=== PATIENT | female | born 1990 | race Caucasian/White ===

== ENCOUNTER 2016-12-13 20:35 | Emergency (ER) | payer OTHER ==
--- NOTE | 2016-12-13 21:21 | ED ---
General Adult HPI - General Chief complaint: Vaginal Bleeding Stated complaint: 6 wks preg spotting Time Seen by Provider: 12/13/16 21:03 Source: patient Mode of arrival: ambulatory - History of Present Illness Initial comments: This patient is 26-year-old woman who comes to the hospital be evaluated for vaginal bleeding. She states that she is about 6 weeks' judging from her last period. She has had approximately one week of some intermittent suprapubic cramping. Tonight about 2 hours ago she started to have what she is describing as some vaginal spotting. It is less than a usual period. She is concerned because she has had previous miscarriages. Patient denies fever or chills. She denies significant abdominal pain. She denies any chest pain, dyspnea, cough. She has not had change in urination or bowel movements. No leg swelling or pain. Onset/Timin -: week(s) Location: abdomen Radiation: non-radiation Quality: other Consistency: intermittent (Cramping) Improves with: none Worsens with: none Associated Symptoms: other Treatments Prior to Arrival: none - Related Data Home Medications Medication Instructions Recorded Confirmed Escitalopram [Lexapro] 10 mg PO HS 03/27/16 12/13/16 Previous Rx's Medication Instructions Recorded Amoxicillin 500 mg PO Q8H #21 capsule 12/14/16 Allergies Allergy/AdvReac Type Severity Reaction Status Date / Time alprazolam [From Xanax] Allergy Rash/Hives Verified 12/13/16 21:21 Egg Derived Allergy Rash/Hives Verified 12/13/16 21:21 Review of Systems ROS Statement: Those systems with pertinent positive or pertinent negative responses have been documented in the HPI. ROS Other: All systems not noted in ROS Statement are negative. Constitutional: Denies: fever, chills Respiratory: Denies: cough, dyspnea Cardiovascular: Denies: chest pain, palpitations Gastrointestinal: Reports: as per HPI, abdominal pain. Denies: nausea, vomiting , diarrhea Genitourinary: Reports: as per HPI, other (Bleeding). Denies: urgency, dysuria , frequency, hematuria, discharge Musculoskeletal: Denies: back pain Skin: Denies: rash Hematological/Lymphatic: Denies: easy bleeding Past Medical History Past Medical History: No Reported History History of Any Multi-Drug Resistant Organisms: None Reported Past Surgical History: No Surgical Hx Reported Past Psychological History: Anxiety Smoking Status: Never smoker Past Alcohol Use History: None Reported Past Drug Use History: None Reported General Exam General appearance: alert, in no apparent distress Head exam: Present: atraumatic, normocephalic Eye exam: Present: normal appearance. Absent: scleral icterus, conjunctival injection ENT exam: Present: normal oropharynx, mucous membranes moist Respiratory exam: Present: normal lung sounds bilaterally. Absent: respiratory distress, wheezes, rales, rhonchi, stridor Cardiovascular Exam: Present: regular rate, normal rhythm, normal heart sounds. Absent: systolic murmur, diastolic murmur, rubs, gallop GI/Abdominal exam: Present: soft. Absent: distended, tenderness, guarding, rebound, mass External exam: Present: normal external exam. Absent: erythema, swelling, lesions Speculum exam: Present: normal speculum exam, vaginal bleeding. Absent: erythema, cervical discharge, foreign body, tissue, laceration By manual exam: Absent: cervical motion tenderness (There is a trace of blood present the cervix is closed and nontender) Extremities exam: Present: normal inspection, normal capillary refill. Absent: pedal edema, calf tenderness Back exam: Absent: CVA tenderness (R), CVA tenderness (L) Neurological exam: Present: alert Skin exam: Present: warm, dry, intact, normal color. Absent: rash Course Vital Signs 12/13/16 12/13/16 20:49 23:13 Temperature 99.0 F 97.7 F Pulse Rate 83 80 Respiratory 18 20 Rate Blood Pressure 166/96 144/90 O2 Sat by Pulse 99 97 Oximetry Medical Decision Making - Lab Data Result diagrams: 12/13/16 21:40 Lab Results 12/13/16 12/13/16 12/13/16 Range/Units 00:30 21:40 21:40 WBC 8.1 (3.8-10.6) k/uL RBC 5.28 (3.80-5.40) m/uL Hgb 12.9 (11.4-16.0) gm/dL Hct 40.0 (34.0-46.0) % MCV 75.8 L (80.0-100.0) fL MCH 24.4 L (25.0-35.0) pg MCHC 32.2 (31.0-37.0) g/dL RDW 15.5 (11.5-15.5) % Plt Count 324 (150-450) k/uL Neutrophils % 58 % Lymphocytes % 31 % Monocytes % 6 % Eosinophils % 3 % Basophils % 1 % Neutrophils # 4.7 (1.3-7.7) k/uL Lymphocytes # 2.5 (1.0-4.8) k/uL Monocytes # 0.5 (0-1.0) k/uL Eosinophils # 0.2 (0-0.7) k/uL Basophils # 0.0 (0-0.2) k/uL Microcytosis Slight HCG, Quant mIU/mL Urine Color Light Yellow Urine Appearance Cloudy H (Clear) Urine pH 6.0 (5.0-8.0) Ur Specific [place] 1.007 (1.001-1.035) Urine Protein Negative (Negative) Urine Glucose (UA) Negative (Negative) Urine Ketones Negative (Negative) Urine Blood Small H (Negative) Urine Nitrite Negative (Negative) Urine Bilirubin Negative (Negative) Urine Urobilinogen <2.0 (<2.0) mg/dL Ur Leukocyte Esterase Large H (Negative) Urine RBC 4 (0-5) /hpf Urine WBC 17 H (0-5) /hpf Ur Squamous Epith Cells 11 H (0-4) /hpf Amorphous Sediment Rare H (None) /hpf Urine Bacteria Rare H (None) /hpf Urine Mucus Rare H (None) /hpf Blood Type A Negative Blood Type Recheck No Antibody Screen NEGATIVE 12/13/16 Range/Units 21:40 WBC (3.8-10.6) k/uL RBC (3.80-5.40) m/uL Hgb (11.4-16.0) gm/dL Hct (34.0-46.0) % MCV (80.0-100.0) fL MCH (25.0-35.0) pg MCHC (31.0-37.0) g/dL RDW (11.5-15.5) % Plt Count (150-450) k/uL Neutrophils % % Lymphocytes % % Monocytes % % Eosinophils % % Basophils % % Neutrophils # (1.3-7.7) k/uL Lymphocytes # (1.0-4.8) k/uL Monocytes # (0-1.0) k/uL Eosinophils # (0-0.7) k/uL Basophils # (0-0.2) k/uL Microcytosis HCG, Quant 847.6 mIU/mL Urine Color Urine Appearance (Clear) Urine pH (5.0-8.0) Ur Specific [place] (1.001-1.035) Urine Protein (Negative) Urine Glucose (UA) (Negative) Urine Ketones (Negative) Urine Blood (Negative) Urine Nitrite (Negative) Urine Bilirubin (Negative) Urine Urobilinogen (<2.0) mg/dL Ur Leukocyte Esterase (Negative) Urine RBC (0-5) /hpf Urine WBC (0-5) /hpf Ur Squamous Epith Cells (0-4) /hpf Amorphous Sediment (None) /hpf Urine Bacteria (None) /hpf Urine Mucus (None) /hpf Blood Type Blood Type Recheck Antibody Screen Disposition Clinical Impression: Threatened Disposition: HOME SELF-CARE Condition: Good Instructions: Threatened Miscarriage (ED), Ectopic (ED) Additional Instructions: As we discussed, it is too early to tell where her is located. 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 Return here immediately if there is any worsening or if there is problem with follow-up. Prescriptions: Amoxicillin 500 mg PO Q8H #21 capsule Referrals: Chris Cade MD [Primary Care Provider] - 1-2 days
[2016-12-13 21:49] LABS: Basophils % (A) 1 %; CH 24.2; CHCM 32.1; Eosinophils # (A) 0.2 k/uL (0-0.7); Eosinophils % (A) 3 %; HGB 12.9 gm/dL (11.4-16.0); Luc # (Auto) 0.17; Luc % (Auto) 2; Lymphocytes # (A) 2.5 k/uL (1.0-4.8); Lymphocytes % (A) 31 %; MCH 24.4 pg (25.0-35.0); MCHC 32.2 g/dL (31.0-37.0); MCV 75.8 fL (80.0-100.0); Microcytosis Slight; Monocytes # (A) 0.5 k/uL (0-1.0); Monocytes % (A) 6 %; Neutrophils # (A) 4.7 k/uL (1.3-7.7); Neutrophils % (A) 58 %; RBC 5.28 m/uL (3.80-5.40); RDW 15.5 % (11.5-15.5); WBC 8.1 k/uL (3.8-10.6); WBC (Perox) 7.87
[2016-12-13] MEDS ORDERED: Rhogam IMMUNE GLOBULIN 1,500 UNIT/1 ML IM ONE (22:23)
--- NOTE | 2016-12-14 00:34 | US ---
Exam: US OB/ENDOVAG History: "Pain". Comparison: None provided. Technique: Grayscale and color images submitted. Findings: The uterus measures 8.8 cm x 5.0 cm x 5.6 cm. The endometrial stripe is thickened to approximately 1.8 cm. No intrauterine identified. Endometrial thickening could be due to very early . Hyperplasia may have a similar appearance. The right ovary measures 3.6 cm x 3.4 cm x 2.9 cm. The left ovary measures 3.3 cm x 2.7 cm x 2.3 cm. No suspicious adnexal masses seen. If there is high clinical concern for occult ectopic , correlate with beta hCG. No free fluid identified. Impression: 1. Thickened endometrium. Nonspecific. Could be due to very early . Continued follow-up recommended. 2. No suspicious adnexal mass identified. There is high clinical concern for an occult ectopic , continued close follow-up is advised.
[2016-12-14 00:45] LABS: Amorphous Sediment,Urine Rare /hpf; Appearance,Urine Cloudy (Clear); Bacteria,Urine Rare /hpf; Bilirubin,Urine Negative (Negative); Glucose,Urine (UA) Negative (Negative); Ketones,Urine Negative (Negative); Leukocyte Esterase,Urine Large (Negative); Mucus,Urine Rare /hpf; Nitrite,Urine Negative (Negative); Particle Count 17530; Protein,Urine Negative (Negative); RBC,Urine 4 /hpf (0-5); Specific Gravity,Urine 1.007 (1.001-1.035); Squamous Epithelial Cell,Urine 11 /hpf (0-4); UA Billing (MACRO vs. MICRO) MICRO; Urobilinogen,Urine <2.0 mg/dL (<2.0); WBC,Urine 17 /hpf (0-5)
[2016-12-14 01:09] VITALS: BP 137/91; PULSE 85; RESP 18; TEMP 97.9
== END 2016-12-14 01:16 | disposition home or self-care (01) ==
LOC: EC 20:35
DX: O20.0 Threatened abortion (principal); O99.321 Drug use complicating pregnancy, first trimester; F41.9 Anxiety disorder, unspecified; Z79.899 Other long term (current) drug therapy; Z91.012 Allergy to eggs; Z88.8 Allergy status to other drugs, medicaments and biological substances; Z3A.01 Less than 8 weeks gestation of pregnancy
CPT/HCPCS: 96372 ×2; 99284 ×2; 36415; 86900; 86901; 85025; 86850; 81001; 84702; 76801; 76817; J2791

== ENCOUNTER → 2016-12-16 | Outpatient (CLI) | payer OTHER | END | disposition home or self-care (01) | LOC: LABWHC1 10:41 | PROVIDERS: ATTEND Obstetrics & Gynecology | DX: Z34.80 Encounter for supervision of other normal pregnancy, unspecified trimester (principal) | CPT/HCPCS: 36415; 84702 ==

== ENCOUNTER → 2017-01-10 | Outpatient (CLI) | payer OTHER ==
--- NOTE | 2017-01-10 11:53 | US ---
EXAMINATION TYPE: US OB <=14 wks transvag DATE OF EXAM: 01/10/2017 COMPARISON: Previous study dated 12/13/2016. CLINICAL HISTORY: 046.91 Bleeding First Trimester. EXAM PERFORMED: Transvaginal (TV) and Transabdominal (TA) EXAM MEASUREMENTS: GESTATIONAL AGE / DATING Physician Established: not yet established Dates by LMP: unknown Dates by First Scan: 1st scan today Dates by Current Scan for: (8 weeks/2 days) EDC: 08/20/16 MATERNAL ANATOMY Uterus: 11.3 x 6.3 x 8.6 Right Ovary: not visualized due to overlying bowel, large body habitus Left Ovary: not visualized due to overlying bowel, large body habitus Post CDS / Adnexa: wnl Presence of free fluid: no Presence of subchorionic bleed: 1.1 x 0.6 x 0.8cm GESTATION / SURVEY CRL: 1.8 (8 weeks/2 days) Yolk Sac (normal less than 6mm): 3mm Heart Rate: 175 bpm Rhythm: Normal IUP: Viable IUP IMPRESSION: VIABLE INTRAUTERINE GESTATION WITH A GESTATIONAL AGE OF 8 WEEKS 2 DAYS +/- 5 DAYS. ESTIMATED DATE OF CONFINEMENT BASED ON THIS EXAMINATION IS 08/20/2017.
== END ==
LOC: RADUSWWP 10:55
PROVIDERS: ATTEND Obstetrics & Gynecology
DX: O46.91 Antepartum hemorrhage, unspecified, first trimester (principal); Z3A.08 8 weeks gestation of pregnancy
CPT/HCPCS: 76801; 76817; 84702; 86850; 86900; 86901

== ENCOUNTER → 2017-02-02 | Outpatient (CLI) | payer OTHER ==
[2017-02-02 09:33] LABS: CH 25.2; CHCM 32.1; HCT 40.8 % (34.0-46.0); HDW 2.53; HGB 13.3 gm/dL (11.4-16.0); MCH 25.6 pg (25.0-35.0); MCHC 32.5 g/dL (31.0-37.0); MCV 78.7 fL (80.0-100.0); RBC 5.18 m/uL (3.80-5.40); WBC 9.6 k/uL (3.8-10.6)
[2017-02-02 10:09] LABS: Glucose 89 mg/dL (74-99); Non-African American GFR(MDRD) >60 (>60 ml/min/1.73 sqM)
[2017-02-02 16:37] LABS: Treponemal Ab Non-Reactive (Non-Reactive)
== END | disposition home or self-care (01) ==
LOC: LABWHC1 08:47
PROVIDERS: ATTEND Obstetrics & Gynecology
DX: O26.811 Pregnancy related exhaustion and fatigue, first trimester (principal); Z3A.00 Weeks of gestation of pregnancy not specified
CPT/HCPCS: 36415; 82565; 82947; 85027; 86762; 86780; 86850; 86870; 86880; 86900; 86901; 87340; 87390

== ENCOUNTER → 2017-05-24 | Outpatient (CLI) | payer OTHER ==
[2017-05-24 13:45] LABS: HCT 37.5 % (34.0-46.0); HGB 11.9 gm/dL (11.4-16.0); MCH 25.4 pg (25.0-35.0); MCHC 31.7 g/dL (31.0-37.0); MCV 80.2 fL (80.0-100.0); Mean Platelet Volume 6.6; Platelet Count 304 k/uL (150-450); RBC 4.68 m/uL (3.80-5.40); RDW 14.5 % (11.5-15.5); WBC 11.4 k/uL (3.8-10.6)
== END | disposition home or self-care (01) ==
LOC: LABWHC1 12:16
PROVIDERS: ATTEND Obstetrics & Gynecology
DX: Z34.82 Encounter for supervision of other normal pregnancy, second trimester (principal); Z3A.00 Weeks of gestation of pregnancy not specified
CPT/HCPCS: 36415; 82950; 85027; 86850; 86900; 86901

== ENCOUNTER 2017-05-29 15:10 | Outpatient (CLI) | payer OTHER ==
[2017-05-29 16:46] VITALS: BP 133/85; PULSE 91; RESP 16; TEMP 97.5
--- NOTE | 2017-06-21 08:56 | P.MSEPDOC ---
Presenting Problems - Arrival Data Date of Arrival on Unit: 05/29/17 Time of Arrival on Unit: 15:10 Mode of Transport: Ambulatory - Complaint OB-Reason for Admission/Chief Complaint: Decreased Movement, Pain Medical History - Information : 5 Para: 1 Term: 1 : 0 Abortions: Spontaneous or Elective: 3 Number of Living Children: 1 - Gestational Age Gestational Age by CHRISTOS (wks/days): 28 Weeks and 5 Days - History Complications: Chronic HTN Review of Systems - Review of Systems Constitutional: No problems Breast: No problems ENT: No problems Cardiovascular: No problems Respiratory: No problems Gastrointestinal: No problems Genitourinary: No problems Musculoskeletal: No problems Neurological: No problems Skin: No problems Vital Signs - Temperature Temperature: 97.5 F Temperature Source: Tympanic - Pulse Right Brachial Pulse Rate: 91 Pulse Assessment Method: Automatic Cuff - Respirations Respiratory Rate: 16 Oxygen Delivery Method: Room Air - Blood Pressure Right Arm Blood Pressure: 133/85 Blood Pressure Mean: 101 Blood Pressure Source: Automatic Cuff Medical Screen Scoring (Pre) - Cervical Exam Dilation: 0 cm = 0 Membranes: Intact - Uterine Contractions Frequency: N/A Duration: N/A Intensity: N/A - Maternal Vital Signs Maternal Temperature: N/A Maternal Blood Pressure: N/A Signs of Preeclampsia: N/A Maternal Respirations: N/A - Pain Assessment Pain Location and Character: Abdomen Pain Scale Used: Numeric (1 - 10) Pain Intensity: 4 Pain Management Goal: 2 Pain Description: *Acute Pain Radiation Location: na Pain Frequency: Occasional Pain Duration: 7 Pain Duration Units: Days Pain Behavior: Vocalization Pain Aggravating Factors: Activity Non-Pharmacological Interventions: Environmental Control, Inactivity, Position/ Reposition - Maternal Trauma Maternal Trauma: N/A - Assessment Baseline FHR: 150 Heart Rate - NICHD Category: Category I (Normal) = 0 NST: Reactive Position: N/A Station: N/A - Total Score Total Score (Pre): 0 - Level of Risk Level of Risk: Low (0-5) Physician Notification (Pre) - Physician Notified Physician Notified Date: 05/29/17 Physician Notified Time: 16:25 Physician/Practitioner Notifed:: Dr. Delgado Spoke With: Dr. Delgado New Order Received: Yes - Notification Comment Comment: d/c home Disposition - Disposition OB Disposition: Discharge to home Discharge Date: 05/29/17 Discharge Time: 16:30 I agree with the RN Medical Screening Exam: Yes Risk & Benefit of care provided described in d/c instruction: Yes Diagnosis: DECREASED MOVEMENTS, THIRD TRIMESTER, FETUS 1
== END 2017-05-29 16:47 | disposition home or self-care (01) ==
LOC: FBPOP 15:10
PROVIDERS: ATTEND Obstetrics & Gynecology
DX: O36.8131 Decreased fetal movements, third trimester, fetus 1 (principal); Z3A.28 28 weeks gestation of pregnancy
CPT/HCPCS: 59025; 84112; G0463; 99213

== ENCOUNTER 2017-06-02 07:35 | Outpatient (CLI) | payer OTHER ==
[2017-06-02 08:43] VITALS: BP 127/82; PULSE 78; RESP 18; TEMP 97.2
--- NOTE | 2017-06-07 23:26 | P.MSEPDOC ---
Presenting Problems - Arrival Data Date of Arrival on Unit: 06/02/17 Time of Arrival on Unit: 07:34 Mode of Transport: Ambulatory - Complaint OB-Reason for Admission/Chief Complaint: Pain Comment: pt arrives with c/o upper back and chest pain since 4am this morning Medical History - Information : 5 Para: 1 Term: 1 : 0 Abortions: Spontaneous or Elective: 3 Number of Living Children: 1 - Gestational Age Gestational Age by CHRISTOS (wks/days): 28 Weeks and 5 Days Review of Systems - Review of Systems Constitutional: No problems Breast: No problems ENT: No problems Cardiovascular: No problems Respiratory: No problems Gastrointestinal: No problems Genitourinary: No problems Musculoskeletal: No problems Neurological: No problems Skin: No problems Vital Signs - Temperature Temperature: 97.2 F Temperature Source: Oral - Pulse Right Brachial Pulse Rate: 78 Pulse Assessment Method: Automatic Cuff - Respirations Respiratory Rate: 18 Oxygen Delivery Method: Room Air O2 Sat by Pulse Oximetry: 97 - Blood Pressure Right Arm Blood Pressure: 127/82 Blood Pressure Mean: 97 Blood Pressure Source: Automatic Cuff Medical Screen Scoring (Pre) - Uterine Contractions Frequency: N/A - Maternal Vital Signs Maternal Temperature: N/A Signs of Preeclampsia: N/A Maternal Respirations: N/A - Pain Assessment Pain Location and Character: Upper, Back Pain Scale Used: Numeric (1 - 10) Pain Intensity: 6 Pain Management Goal: 0 Pain Description: Aching Pain Frequency: Intermittent Pain Duration Units: Hours Pain Behavior: Teary Eyed, Vocalization Non-Pharmacological Interventions: Position/Reposition - Maternal Trauma Maternal Trauma: N/A - Assessment Baseline FHR: 140 Heart Rate - NICHD Category: Category I (Normal) = 0 NST: Reactive Position: N/A - Total Score Total Score (Pre): 0 - Level of Risk Level of Risk: Low (0-5) Physician Notification (Pre) - Physician Notified Physician Notified Date: 06/02/17 Physician Notified Time: 08:20 Physician/Practitioner Notifed:: Dr Bose Spoke With: Juice New Order Received: Yes - Notification Comment Comment: pt to go to ER for further evaluation Disposition - Disposition OB Disposition: Transfer to other dept./facility Transferred to:: ER Discharge Date: 06/02/17 Discharge Time: 08:27 I agree with the RN Medical Screening Exam: Yes Risk & Benefit of care provided described in d/c instruction: Yes Diagnosis: 28 WEEKS GESTATION OF
== END 2017-06-02 08:27 | disposition home or self-care (01) ==
LOC: FBPOP 07:35
PROVIDERS: ATTEND Obstetrics & Gynecology
DX: O26.893 Other specified pregnancy related conditions, third trimester (principal); R07.9 Chest pain, unspecified; Z3A.28 28 weeks gestation of pregnancy
CPT/HCPCS: 59025; G0463; 99213

== ENCOUNTER 2017-06-02 08:40 | Emergency (ER) | payer OTHER ==
[2017-06-02] MEDS ORDERED: SODIUM CHLORIDE 0.9% 1,000 ML IV STA (09:13)
[2017-06-02 09:15] VITALS: TEMP 97.3
[2017-06-02 09:49] LABS: Basophils % (A) 0 %; Eosinophils # (A) 0.2 k/uL (0-0.7); Eosinophils % (A) 2 %; HCT 37.2 % (34.0-46.0); HGB 12.2 gm/dL (11.4-16.0); Lymphocytes # (A) 1.4 k/uL (1.0-4.8); Lymphocytes % (A) 10 %; MCH 25.9 pg (25.0-35.0); MCV 78.7 fL (80.0-100.0); Mean Platelet Volume 7.1; Monocytes # (A) 0.6 k/uL (0-1.0); Monocytes % (A) 4 %; Neutrophils % (A) 83 %; Platelet Count 297 k/uL (150-450); RBC 4.72 m/uL (3.80-5.40); RDW 15.4 % (11.5-15.5); WBC 14.4 k/uL (3.8-10.6)
[2017-06-02 09:54] LABS: Appearance,Urine Cloudy (Clear); Bacteria,Urine Occasional /hpf; Bilirubin,Urine Negative (Negative); Blood,Urine Negative (Negative); Color,Urine Yellow; Glucose,Urine (UA) Negative (Negative); Ketones,Urine Negative (Negative); Leukocyte Esterase,Urine Moderate (Negative); Mucus,Urine Moderate /hpf; Nitrite,Urine Negative (Negative); Protein,Urine Trace (Negative); Specific Gravity,Urine 1.016 (1.001-1.035); Squamous Epithelial Cell,Urine 12 /hpf (0-4); Urobilinogen,Urine <2.0 mg/dL (<2.0); WBC,Urine 13 /hpf (0-5)
[2017-06-02 10:00] LABS: ALT 57 U/L (9-52); AST 66 U/L (14-36); Albumin 3.9 g/dL (3.5-5.0); Alkaline Phosphatase 136 U/L (38-126); Anion Gap 13 mmol/L; Blood Urea Nitrogen 5 mg/dL (7-17); Calcium 9.4 mg/dL (8.4-10.2); Carbon Dioxide 24 mmol/L (22-30); Chloride 104 mmol/L (98-107); Glucose 106 mg/dL (74-99); Potassium 3.4 mmol/L (3.5-5.1); Sodium 141 mmol/L (137-145); Total Bilirubin 0.6 mg/dL (0.2-1.3); Total Protein 7.3 g/dL (6.3-8.2)
[2017-06-02 10:02] LABS: D-Dimer 1.52 mg/L FEU (<0.60); INR 0.9 (<1.2); Partial Thromboplastin Time 23.4 sec (22.0-30.0); Prothrombin Time 9.4 sec (9.0-12.0)
[2017-06-02] MEDS ORDERED: RX INFO: IV CONTRAST WAS GIVEN 1 EACH MISC MISCELLANE PRN (10:07)
[2017-06-02 10:17] LABS: Creatine Kinase 37 U/L (30-135)
[2017-06-02 10:29] LABS: Creatine Kinase MB 0.4 ng/mL (0.0-2.4); Troponin I <0.012 ng/mL (0.000-0.034)
--- NOTE | 2017-06-02 10:48 | ED ---
General Adult HPI <Haider Kessler - Last Filed: 06/02/17 11:36> - General Source: patient, RN notes reviewed Mode of arrival: ambulatory Limitations: no limitations <Jose A Gates - Last Filed: 06/02/17 11:40> - General Chief complaint: Neck Pain/Injury Stated complaint: BACK PAIN Time Seen by Provider: 06/02/17 09:00 - History of Present Illness Initial comments: Patient is a 27-year-old female who is 29 weeks , presenting today with a chief complaint of mid back pain. She states started in the middle of night. She states at times seem to be worse with movements. At other times does not seem to matter what she is doing. She doesn't that seems to be worse with deep breath. She does not that she's had some cough congestion for the last 4 months. Patient states that she was seen by mother-baby cleared and sent back here to the emergency room for this pain. Patient denies any injury or trauma. Denies any other points at this time. Denies any leg swelling or recent travel. (Jose A Gates) - Related Data Home Medications Medication Instructions Recorded Confirmed 5-Hydroxytryptophan (5-Htp) [5-Htp 100 mg PO DAILY 04/18/17 06/02/17 (Natrol)] Doxylamine Succinate [Unisom] 50 mg PO HS 04/18/17 06/02/17 Ergocalciferol (Vitamin D2) 2,000 unit PO DAILY 04/18/17 06/02/17 [Vitamin D2] Pnv,Calcium 72/Iron/Folic Acid 1 tab PO DAILY 04/18/17 06/02/17 [ Plus Tablet] Ranitidine HCl [Zantac] 150 mg PO HS 04/18/17 06/02/17 Labetalol [Trandate] 100 mg PO BID 05/29/17 06/02/17 Allergies Allergy/AdvReac Type Severity Reaction Status Date / Time alprazolam [From Xanax] Allergy Severe Anaphylaxis Verified 06/02/17 09:11 Egg Derived Allergy Rash/Hives Verified 06/02/17 09:11 Latex, Natural Rubber Allergy Rash/Hives Verified 06/02/17 09:11 Review of Systems ROS Other: All systems not noted in ROS Statement are negative. <Haider Kessler - Last Filed: 06/02/17 11:36> ROS Other: All systems not noted in ROS Statement are negative. <GatesJose A - Last Filed: 06/02/17 11:40> ROS Statement: Those systems with pertinent positive or pertinent negative responses have been documented in the HPI. Past Medical History Past Medical History: No Reported History History of Any Multi-Drug Resistant Organisms: None Reported Past Surgical History: No Surgical Hx Reported Past Psychological History: Anxiety Smoking Status: Never smoker Past Alcohol Use History: None Reported Past Drug Use History: None Reported <Jose A Gates - Last Filed: 06/02/17 11:40> General Exam <Haider Kessler - Last Filed: 06/02/17 11:36> Limitations: no limitations <Jose A Gates - Last Filed: 06/02/17 11:40> - General Exam Comments Initial Comments: General: The patient is awake and alert, in no distress, and does not appear acutely ill. Eye: Pupils are equal, round and reactive to light, extra-ocular movements are intact. No nystagmus. There is normal conjunctiva bilaterally. No signs of icterus. Ears, nose, mouth and throat: There are moist mucous membranes and no oral lesions. Neck: The neck is supple, there is no tenderness or JVD. Cardiovascular: There is a regular rate and rhythm. No murmur, rub or gallop is appreciated. Respiratory: Lungs are clear to auscultation, respirations are non-labored, breath sounds are equal. No wheezes, stridor, rales, or rhonchi. Gastrointestinal: Soft, non-distended, non-tender abdomen without masses or organomegaly noted. There is no rebound or guarding present. No CVA tenderness. Bowel sounds are unremarkable. Musculoskeletal: Normal ROM. Normal appearance of the thoracic lumbar spine with no tenderness midline. Mild tenderness to the thoracic spine approximately T5-T6 area to the right. Strength 5/5. Sensation intact. Pulses equal bilaterally 2+. Neurological: A&O x 3. CN II-XII intact, There are no obvious motor or sensory deficits. Coordination appears grossly intact. Speech is normal. Skin: Skin is warm and dry and no rashes or lesions are noted. Psychiatric: Cooperative, appropriate mood & affect, normal judgment. (Jose A Gates) Vital Signs 06/02/17 06/02/17 09:09 11:34 Temperature 97.3 F L Pulse Rate 88 90 Respiratory 18 20 Rate Blood Pressure 136/79 137/73 O2 Sat by Pulse 99 98 Oximetry EKG Findings - EKG Comments: EKG Findings:: EKG performed at 0922: A 12-lead EKG was performed and interpreted by me as showing the following: Rate is 72, and rhythm is normal sinus. There are normal QRS complexes and normal R-wave progression. ST segments have no elevation or depression, and NE segments appear normal. <Jose A Gates - Last Filed: 06/02/17 11:40> Medical Decision Making - Lab Data Result diagrams: 06/02/17 09:34 06/02/17 09:34 <Haider Kessler - Last Filed: 06/02/17 11:36> - Lab Data Result diagrams: 06/02/17 09:34 06/02/17 09:34 <Jose A Gates - Last Filed: 06/02/17 11:40> - Medical Decision Making Medical decision-making; this is a 27-year-old female who is 29 weeks . The patient was cleared by labor and delivery for further evaluation. Patient reports she hasn't discomfort to her mid back earlier today. It did increase with some twisting and turning and bending but also was there when she didn't do certain things was not worse when she took deep breaths. The patient' s vital signs upon arrival shoulder to be afebrile. Heart rate only 81 with a pulse ox 99% on room air. Labs are done and showed elevated d-dimer 1.54. The patient did have CAT scan to rule out PE. Radiologist reports that the exam was suboptimal due to suboptimal contrast bolus but there is no large central PE. I did discuss the situation with the patient. Also spoke with Dr. Bose, on-call for Dr. Tripathi. At this time the patient will be advised to continue with Tylenol for discomfort. Gentle stretching. And follow-up with her family physician and her [employer]. Patient advised return emergency room with any changes. Dr. Kessler (Haider Kessler) - Lab Data Lab Results 06/02/17 06/02/17 06/02/17 Range/Units 09:34 09:34 09:34 WBC 14.4 H (3.8-10.6) k/uL RBC 4.72 (3.80-5.40) m/uL Hgb 12.2 (11.4-16.0) gm/dL Hct 37.2 (34.0-46.0) % MCV 78.7 L (80.0-100.0) fL MCH 25.9 (25.0-35.0) pg MCHC 33.0 (31.0-37.0) g/dL RDW 15.4 (11.5-15.5) % Plt Count 297 (150-450) k/uL Neutrophils % 83 % Lymphocytes % 10 % Monocytes % 4 % Eosinophils % 2 % Basophils % 0 % Neutrophils # 12.0 H (1.3-7.7) k/uL Lymphocytes # 1.4 (1.0-4.8) k/uL Monocytes # 0.6 (0-1.0) k/uL Eosinophils # 0.2 (0-0.7) k/uL Basophils # 0.0 (0-0.2) k/uL PT (9.0-12.0) sec INR (<1.2) APTT (22.0-30.0) sec D-Dimer (<0.60) mg/L FEU Sodium 141 (137-145) mmol/L Potassium 3.4 L (3.5-5.1) mmol/L Chloride 104 (98-107) mmol/L Carbon Dioxide 24 (22-30) mmol/L Anion Gap 13 mmol/L BUN 5 L (7-17) mg/dL Creatinine 0.58 (0.52-1.04) mg/dL Est GFR (MDRD) Af Amer >60 (>60 ml/min/1.73 sqM) Est GFR (MDRD) Non-Af >60 (>60 ml/min/1.73 sqM) Glucose 106 H (74-99) mg/dL Calcium 9.4 (8.4-10.2) mg/dL Total Bilirubin 0.6 (0.2-1.3) mg/dL AST 66 H (14-36) U/L ALT 57 H (9-52) U/L Alkaline Phosphatase 136 H (38-126) U/L Total Creatine Kinase 37 (30-135) U/L CK-MB (CK-2) 0.4 (0.0-2.4) ng/mL CK-MB (CK-2) Rel Index 1.1 Troponin I <0.012 (0.000-0.034) ng/mL Total Protein 7.3 (6.3-8.2) g/dL Albumin 3.9 (3.5-5.0) g/dL Urine Color Urine Appearance (Clear) Urine pH (5.0-8.0) Ur Specific [place] (1.001-1.035) Urine Protein (Negative) Urine Glucose (UA) (Negative) Urine Ketones (Negative) Urine Blood (Negative) Urine Nitrite (Negative) Urine Bilirubin (Negative) Urine Urobilinogen (<2.0) mg/dL Ur Leukocyte Esterase (Negative) Urine WBC (0-5) /hpf Ur Squamous Epith Cells (0-4) /hpf Urine Bacteria (None) /hpf Urine Mucus (None) /hpf 06/02/17 06/02/17 Range/Units 09:34 09:34 WBC (3.8-10.6) k/uL RBC (3.80-5.40) m/uL Hgb (11.4-16.0) gm/dL Hct (34.0-46.0) % MCV (80.0-100.0) fL MCH (25.0-35.0) pg MCHC (31.0-37.0) g/dL RDW (11.5-15.5) % Plt Count (150-450) k/uL Neutrophils % % Lymphocytes % % Monocytes % % Eosinophils % % Basophils % % Neutrophils # (1.3-7.7) k/uL Lymphocytes # (1.0-4.8) k/uL Monocytes # (0-1.0) k/uL Eosinophils # (0-0.7) k/uL Basophils # (0-0.2) k/uL PT 9.4 (9.0-12.0) sec INR 0.9 (<1.2) APTT 23.4 (22.0-30.0) sec D-Dimer 1.52 H (<0.60) mg/L FEU Sodium (137-145) mmol/L Potassium (3.5-5.1) mmol/L Chloride (98-107) mmol/L Carbon Dioxide (22-30) mmol/L Anion Gap mmol/L BUN (7-17) mg/dL Creatinine (0.52-1.04) mg/dL Est GFR (MDRD) Af Amer (>60 ml/min/1.73 sqM) Est GFR (MDRD) Non-Af (>60 ml/min/1.73 sqM) Glucose (74-99) mg/dL Calcium (8.4-10.2) mg/dL Total Bilirubin (0.2-1.3) mg/dL AST (14-36) U/L ALT (9-52) U/L Alkaline Phosphatase (38-126) U/L Total Creatine Kinase (30-135) U/L CK-MB (CK-2) (0.0-2.4) ng/mL CK-MB (CK-2) Rel Index Troponin I (0.000-0.034) ng/mL Total Protein (6.3-8.2) g/dL Albumin (3.5-5.0) g/dL Urine Color Yellow Urine Appearance Cloudy H (Clear) Urine pH 6.0 (5.0-8.0) Ur Specific [place] 1.016 (1.001-1.035) Urine Protein Trace H (Negative) Urine Glucose (UA) Negative (Negative) Urine Ketones Negative (Negative) Urine Blood Negative (Negative) Urine Nitrite Negative (Negative) Urine Bilirubin Negative (Negative) Urine Urobilinogen <2.0 (<2.0) mg/dL Ur Leukocyte Esterase Moderate H (Negative) Urine WBC 13 H (0-5) /hpf Ur Squamous Epith Cells 12 H (0-4) /hpf Urine Bacteria Occasional H (None) /hpf Urine Mucus Moderate H (None) /hpf Disposition <Haider Kessler - Last Filed: 06/02/17 11:36> Time of Disposition: 11:38 <Jose A Gates - Last Filed: 06/02/17 11:40> Clinical Impression: Back pain Disposition: HOME SELF-CARE Condition: Good Instructions: Back Pain (ED) Additional Instructions: Please continue Tylenol for pain as needed. Please follow-up with [employer] over the next 2 days return here to the emergency room symptoms increase worsen or for any other concerns. Referrals: Chris Cade MD [Primary Care Provider] - 1-2 days Darnell Hawkins DO [Doctor of Osteopathic Medicine] - 1-2 days
--- NOTE | 2017-06-02 11:18 | CT ---
EXAMINATION TYPE: CT angio chest DATE OF EXAM: 06/02/2017 COMPARISON: NONE HISTORY: 27 year-old female elevated d-dimer, shortness of breath. TECHNIQUE: Contiguous axial scanning of the chest performed with IV Contrast, patient injected with 7 6 mL of Omnipaque 350. Coronal/sagittal MIP reconstructions performed. CT DLP: 409.50 mGycm Automated exposure control for dose reduction was used. FINDINGS: Heart normal size with small amount of anterior basilar pericardial fluid. Ascending aorta upper limits of normal caliber at 3.5 cm. Conventional arch vessel branching anatomy. No thoracic lymphadenopathy seen. Some apparent filling defects within right upper lobe pulmonary arterial branches localize within the pulmonary venous system. No large central pulmonary embolus is seen. The assessment for pulmonary embolus is markedly degraded due to suboptimal contrast bolus. Lobar and more distal arterial branches are essentially nondiagnos tic. In addition, there is mild respiratory motion artifact in the upper and lower lungs. Some dependent atelectasis is present. No consolidation or pleural effusion. Small hiatal hernia. Spleen is enlarged measuring 15.3 cm. Bones: No osseous destructive process. IMPRESSION: 1. SUBOPTIMAL STUDY FOR ASSESSMENT OF PULMONARY EMBOLUS DUE TO BOTH LIMITED DEGREE OF OPACIFICATION A ND RESPIRATORY MOTION. NO LARGE CENTRAL PULMONARY EMBOLUS. LOBAR AND MORE DISTAL ARTERIAL BRANCHES AR E NONDIAGNOSTIC. 2. NO ACUTE PULMONARY PROCESS. 3. SPLENOMEGALY (15.3 CM).
[2017-06-02 11:34] VITALS: BP 137/73; PULSE 90; RESP 20
== END 2017-06-02 12:07 | disposition home or self-care (01) ==
LOC: EC 08:40
DX: O99.89 Other specified diseases and conditions complicating pregnancy, childbirth and the puerperium (principal); M54.9 Dorsalgia, unspecified; O99.343 Other mental disorders complicating pregnancy, third trimester; F41.9 Anxiety disorder, unspecified; Z3A.29 29 weeks gestation of pregnancy; Z79.899 Other long term (current) drug therapy; Z91.040 Latex allergy status; Z91.012 Allergy to eggs; Z88.8 Allergy status to other drugs, medicaments and biological substances
CPT/HCPCS: 36415; 93005; 85379; 80053; 82550; 82553; 84484; 85025; 85610; 85730; 81001; 71275; 99284; 96360; Q9967

== ENCOUNTER 2017-06-24 20:02 | Outpatient (CLI) | payer OTHER ==
[2017-06-24] MEDS ORDERED: LACTATED RINGERS 1,000 ML IV SCH (20:45)
[2017-06-24 21:00] VITALS: RESP 18; TEMP 97.2
[2017-06-24 21:06] LABS: Basophils % (A) 0 %; Eosinophils # (A) 0.1 k/uL (0-0.7); Eosinophils % (A) 1 %; HCT 37.7 % (34.0-46.0); HGB 12.2 gm/dL (11.4-16.0); Lymphocytes # (A) 1.9 k/uL (1.0-4.8); Lymphocytes % (A) 15 %; MCH 25.7 pg (25.0-35.0); MCHC 32.4 g/dL (31.0-37.0); MCV 79.3 fL (80.0-100.0); Mean Platelet Volume 6.5; Monocytes # (A) 0.8 k/uL (0-1.0); Monocytes % (A) 6 %; Neutrophils # (A) 9.5 k/uL (1.3-7.7); Neutrophils % (A) 76 %; Platelet Count 338 k/uL (150-450); RBC 4.75 m/uL (3.80-5.40); RDW 14.3 % (11.5-15.5); WBC 12.5 k/uL (3.8-10.6)
[2017-06-24 21:08] LABS: ALT 50 U/L (9-52); AST 23 U/L (14-36); Blood Urea Nitrogen 3 mg/dL (7-17); LDH 292 U/L (313-618); Uric Acid 3.7 mg/dL (3.7-7.4)
[2017-06-24 21:13] LABS: Appearance,Urine Cloudy (Clear); Bacteria,Urine Occasional /hpf; Bilirubin,Urine Negative (Negative); Blood,Urine Negative (Negative); Calcium Oxalate Crystals,Urine Few /hpf; Color,Urine Yellow; Glucose,Urine (UA) Negative (Negative); Ketones,Urine Negative (Negative); Leukocyte Esterase,Urine Large (Negative); Mucus,Urine Moderate /hpf; Nitrite,Urine Negative (Negative); PH, Urine 6.5 (5.0-8.0); Protein,Urine 1+ (Negative); RBC,Urine 2 /hpf (0-5); Specific Gravity,Urine 1.016 (1.001-1.035); Squamous Epithelial Cell,Urine 19 /hpf (0-4); Urobilinogen,Urine <2.0 mg/dL (<2.0); WBC,Urine 16 /hpf (0-5)
[2017-06-24 22:04] VITALS: BP 136/86
[2017-06-24 22:12] VITALS: PULSE 96
--- NOTE | 2017-06-25 08:54 | P.MSEPDOC ---
Presenting Problems - Arrival Data Date of Arrival on Unit: 06/24/17 Time of Arrival on Unit: 19:55 Mode of Transport: Ambulatory - Complaint OB-Reason for Admission/Chief Complaint: PIH Comment: Pt presents with c/o cramping for a couple days, high blood pressure, feeling dizzy around 1730 but is resolved at this time, and high heart rate. Medical History - Information : 5 Para: 1 Term: 1 : 0 Abortions: Spontaneous or Elective: 3 Number of Living Children: 1 - Gestational Age Gestational Age by CHRISTOS (wks/days): 31 Weeks and 6 Days - History Complications: Preeclampsia Review of Systems - Review of Systems Constitutional: No problems Breast: No problems ENT: No problems Cardiovascular: No problems Respiratory: No problems Gastrointestinal: No problems Genitourinary: No problems Musculoskeletal: No problems Neurological: No problems Skin: No problems Vital Signs - Temperature Temperature: 97.2 F Temperature Source: Temporal Artery Scan - Pulse Right Pulse Rate: 96 Pulse Assessment Method: Pulse Oximetry - Respirations Respiratory Rate: 18 - Blood Pressure Right Arm Blood Pressure: 136/86 Blood Pressure Mean: 102 Blood Pressure Source: Automatic Cuff Medical Screen Scoring (Pre) - Cervical Exam Dilation: Exam Deferred Effacement: Exam Deferred Membranes: Intact - Uterine Contractions Frequency: N/A Duration: N/A Intensity: N/A - Maternal Vital Signs Maternal Temperature: N/A Maternal Blood Pressure: >159/109 = 8 Signs of Preeclampsia: N/A Maternal Respirations: N/A - Pain Assessment Pain Location and Character: Abdomen Pain Scale Used: Numeric (1 - 10) Pain Intensity: 8 Pain Management Goal: 0 Pain Description: *Acute, Cramping Pain Frequency: Daily Pain Duration Units: Hours Pain Behavior: Vocalization Pain Aggravating Factors: Activity Non-Pharmacological Interventions: Distraction, Position/Reposition, Relaxation Technique - Maternal Trauma Maternal Trauma: N/A - Assessment Baseline FHR: 155 Heart Rate - NICHD Category: Category I (Normal) = 0 NST: Reactive Position: N/A Station: N/A - Total Score Total Score (Pre): 8 - Level of Risk Level of Risk: Medium (6-9) Physician Notification (Pre) - Physician Notified Physician Notified Date: 06/24/17 Physician Notified Time: 20:30 Physician/Practitioner Notifed:: Dr. Bose Spoke With: Dr. Juice Prieto Order Received: Yes - Notification Comment Comment: Orders for labs, vital signs, and IV given. Orders read back and confirmed by physician. Will call physician with results. Medical Screen Scoring (Post) - Cervical Exam Dilation: Exam Deferred Effacement: Exam Deferred Membranes: Intact - Uterine Contractions Frequency: N/A Duration: N/A Intensity: N/A - Maternal Vital Signs Maternal Temperature: N/A Maternal Blood Pressure: N/A Signs of Preeclampsia: N/A Maternal Respirations: N/A - Pain Assessment Pain Location and Character: Abdomen Pain Scale Used: Numeric (1 - 10) Pain Intensity: 6 Pain Management Goal: 0 Pain Description: *Acute, Cramping Pain Frequency: Daily Pain Duration Units: Hours Pain Behavior: Vocalization Pain Aggravating Factors: Activity Non-Pharmacological Interventions: Distraction, Position/Reposition, Relaxation Technique - Maternal Trauma Maternal Trauma: N/A - Assessment Heart Rate: 155 Heart Rate - NICHD Category: Category I (Normal) = 0 NST: Reactive Position: N/A Station: N/A - Total Score Total Score (Post): 0 - Post Treatment Level of Risk Post Treatment Level of Risk: Low (0-5) Physician Notification (Post) - Physician Notified Physician Notified Date: 06/24/17 Physician Notified Time: 21:37 Physician/Practitioner Notified:: Dr. Bose Spoke With: Dr. Juice Prieto Order Received: Yes (Discharge home with instructions.) - Notification Comment Comment: Pt cleared for discharge home at this time. Pt is to return if symptoms worsen or with additional concerns. Pt is to keep appointment with Dr. Hawkins in the office on Monday. Pt verbalizes understanding. Disposition - Disposition OB Disposition: Discharge to home Discharge Date: 06/24/17 Discharge Time: 21:48 I agree with the RN Medical Screening Exam: Yes Physician's MSE Comment: This patient is being follow for her elevated liver enzymes and Dr Hawkins believes she may have cholestasis. She has an appt coming up with [facility] [place]. Today she was having some increased blood pressures but no other symptoms. I would not deliver her or put her on medicine with these pressures at this point in the . I do believe she needs to have NSTs and a BP check in the office this week and keep upcoming appt with [facility] [place]. As for the pain she came in for, the patient was telling me earlier in the day about diahrrea she was experiencing. I feel she may have some gastritis or GI issues related to this and needs to increase her fluids as well as follow a bland diet until it passes. Risk & Benefit of care provided described in d/c instruction: Yes Diagnosis: UNSPECIFIED ABDOMINAL PAIN
== END 2017-06-24 21:48 | disposition home or self-care (01) ==
LOC: FBPOP 20:02
PROVIDERS: ATTEND Obstetrics & Gynecology
DX: O26.893 Other specified pregnancy related conditions, third trimester (principal); R10.9 Unspecified abdominal pain; O13.3 Gestational [pregnancy-induced] hypertension without significant proteinuria, third trimester; Z3A.31 31 weeks gestation of pregnancy
CPT/HCPCS: 59025; 96360; 82570; 84156; 82565; 83615; 84450; 84460; 84520; 84550; 85025; 81001; G0463; 99215

== ENCOUNTER 2017-06-29 19:17 | Outpatient (CLI) | payer OTHER ==
[2017-06-29] MEDS ORDERED: LABETALOL 200 MG TAB PO STA (20:26)
[2017-06-29 20:38] LABS: Amorphous Sediment,Urine Rare /hpf; Appearance,Urine Cloudy (Clear); Bilirubin,Urine Negative (Negative); Blood,Urine Negative (Negative); Color,Urine Yellow; Glucose,Urine (UA) Negative (Negative); Ketones,Urine Negative (Negative); Leukocyte Esterase,Urine Moderate (Negative); Mucus,Urine Rare /hpf; Nitrite,Urine Negative (Negative); Protein,Urine Negative (Negative); RBC,Urine 3 /hpf (0-5); Specific Gravity,Urine 1.009 (1.001-1.035); Squamous Epithelial Cell,Urine 2 /hpf (0-4); Urobilinogen,Urine <2.0 mg/dL (<2.0); WBC,Urine 4 /hpf (0-5)
[2017-06-29 21:43] LABS: Basophils % (A) 0 %; Eosinophils # (A) 0.2 k/uL (0-0.7); Eosinophils % (A) 1 %; HCT 36.5 % (34.0-46.0); HGB 11.9 gm/dL (11.4-16.0); Lymphocytes # (A) 2.1 k/uL (1.0-4.8); Lymphocytes % (A) 17 %; MCHC 32.6 g/dL (31.0-37.0); MCV 79.6 fL (80.0-100.0); Mean Platelet Volume 6.8; Monocytes # (A) 0.6 k/uL (0-1.0); Monocytes % (A) 5 %; Neutrophils # (A) 9.2 k/uL (1.3-7.7); Neutrophils % (A) 75 %; Platelet Count 309 k/uL (150-450); RBC 4.58 m/uL (3.80-5.40); RDW 14.3 % (11.5-15.5); WBC 12.2 k/uL (3.8-10.6)
[2017-06-29 21:47] LABS: ALT 39 U/L (9-52); AST 21 U/L (14-36); Albumin 3.5 g/dL (3.5-5.0); Alkaline Phosphatase 126 U/L (38-126); Bilirubin, Delta 0.3 mg/dL (0.0-0.2); Blood Urea Nitrogen 5 mg/dL (7-17); LDH 266 U/L (313-618); Total Bilirubin 0.3 mg/dL (0.2-1.3); Total Protein 6.6 g/dL (6.3-8.2); Uric Acid 3.3 mg/dL (3.7-7.4)
[2017-06-29 23:10] VITALS: BP 144/97; PULSE 97; RESP 16; TEMP 98.1
--- NOTE | 2017-06-30 08:38 | P.MSEPDOC ---
Presenting Problems - Arrival Data Date of Arrival on Unit: 06/29/17 Time of Arrival on Unit: 19:27 Mode of Transport: Wheelchair - Complaint OB-Reason for Admission/Chief Complaint: Other Comment: high blood pressures. pt states she took her BP three times, a half hour apart each time and they were all high. Medical History - Information : 5 Para: 1 Term: 0 : 1 Abortions: Spontaneous or Elective: 3 Number of Living Children: 1 - Gestational Age Gestational Age by CHRISTOS (wks/days): 32 Weeks and 4 Days - History Complications: Prior Review of Systems - Review of Systems Constitutional: No problems Breast: No problems ENT: No problems Cardiovascular: No problems Respiratory: No problems Gastrointestinal: No problems Genitourinary: No problems Musculoskeletal: No problems Neurological: No problems Skin: No problems Vital Signs - Temperature Temperature: 98.1 F Temperature Source: Temporal Artery Scan - Pulse Right Sitting Brachial Pulse Rate: 97 Pulse Assessment Method: Automatic Cuff - Respirations Respiratory Rate: 16 Oxygen Delivery Method: Room Air O2 Sat by Pulse Oximetry: 96 - Blood Pressure Right Arm Sitting Blood Pressure: 144/97 Blood Pressure Mean: 112 Blood Pressure Source: Automatic Cuff Medical Screen Scoring (Pre) - Cervical Exam Dilation: Exam Deferred Effacement: Exam Deferred Membranes: Intact - Uterine Contractions Frequency: N/A - Maternal Vital Signs Maternal Temperature: N/A Maternal Blood Pressure: Systolic >139 = 2 Signs of Preeclampsia: Headache = 1 - Pain Assessment Pain Location and Character: Head Pain Scale Used: Numeric (1 - 10) Pain Intensity: 4 Pain Management Goal: 3 Pain Description: *Acute, Aching Pain Radiation Location: n/a Pain Frequency: Frequent Pain Duration: 4 Pain Duration Units: Hours Pain Behavior: Vocalization Pain Aggravating Factors: None - Assessment Baseline FHR: 150 Heart Rate - NICHD Category: Category I (Normal) = 0 NST: Reactive - Total Score Total Score (Pre): 3 - Level of Risk Level of Risk: Low (0-5) Physician Notification (Pre) - Physician Notified Physician Notified Date: 06/29/17 Physician Notified Time: 20:10 Physician/Practitioner Notifed:: jennifer Spoke With: jennifer New Order Received: Yes - Notification Comment Comment: labs ordered, labetalol 200mg ordered. Physician Notification (Post) - Physician Notified Physician Notified Date: 06/29/17 Physician Notified Time: 22:28 Physician/Practitioner Notified:: jennifer Spoke With: jennifer New Order Received: Yes - Notification Comment Comment: labs reported, BPs WNL currently. d/c home with orders to call dr key in office at 0830 to make appt to be seen tomrorow. if pt experiences any further symptoms, she needs to come into triage Disposition - Disposition OB Disposition: Discharge to home Discharge Date: 06/29/17 Discharge Time: 20:40 I agree with the RN Medical Screening Exam: Yes Risk & Benefit of care provided described in d/c instruction: Yes Diagnosis: UNSPECIFIED MATERNAL HYPERTENSION, THIRD TRIMESTER
== END 2017-06-29 22:40 | disposition home or self-care (01) ==
LOC: FBPOP 19:17
PROVIDERS: ATTEND Obstetrics & Gynecology
DX: O16.3 Unspecified maternal hypertension, third trimester (principal); Z3A.32 32 weeks gestation of pregnancy
CPT/HCPCS: 59025; 82239; 82570; 80076; 84156; 82565; 83615; 84520; 84550; 85025; 81001; G0463; 99215

== ENCOUNTER 2017-07-01 18:08 | Outpatient (CLI) | payer OTHER ==
[2017-07-01 19:16] LABS: Amorphous Sediment,Urine Rare /hpf; Appearance,Urine Cloudy (Clear); Bacteria,Urine Rare /hpf; Bilirubin,Urine Negative (Negative); Blood,Urine Negative (Negative); Color,Urine Yellow; Glucose,Urine (UA) Negative (Negative); Ketones,Urine Negative (Negative); Leukocyte Esterase,Urine Moderate (Negative); Mucus,Urine Occasional /hpf; Nitrite,Urine Negative (Negative); PH, Urine 7.5 (5.0-8.0); Protein,Urine Trace (Negative); Specific Gravity,Urine 1.012 (1.001-1.035); Squamous Epithelial Cell,Urine 7 /hpf (0-4); Urobilinogen,Urine <2.0 mg/dL (<2.0); WBC,Urine 5 /hpf (0-5)
[2017-07-01 19:33] VITALS: RESP 18
[2017-07-01 19:45] LABS: Basophils % (A) 0 %; Eosinophils # (A) 0.1 k/uL (0-0.7); Eosinophils % (A) 1 %; HCT 37.2 % (34.0-46.0); HGB 11.7 gm/dL (11.4-16.0); Lymphocytes # (A) 1.6 k/uL (1.0-4.8); Lymphocytes % (A) 15 %; MCH 25.9 pg (25.0-35.0); MCHC 31.5 g/dL (31.0-37.0); MCV 82.1 fL (80.0-100.0); Monocytes # (A) 0.7 k/uL (0-1.0); Monocytes % (A) 6 %; Neutrophils # (A) 8.2 k/uL (1.3-7.7); Neutrophils % (A) 76 %; Platelet Count 270 k/uL (150-450); RBC 4.53 m/uL (3.80-5.40); RDW 14.7 % (11.5-15.5); WBC 10.8 k/uL (3.8-10.6)
[2017-07-01 19:52] LABS: ALT 39 U/L (9-52); AST 26 U/L (14-36); Anion Gap 10 mmol/L; Carbon Dioxide 24 mmol/L (22-30); Chloride 105 mmol/L (98-107); LDH 272 U/L (313-618); Magnesium 1.5 mg/dL (1.6-2.3); Phosphorus 3.7 mg/dL (2.5-4.5); Potassium 4.2 mmol/L (3.5-5.1); Sodium 139 mmol/L (137-145); Uric Acid 3.7 mg/dL (3.7-7.4)
[2017-07-01 20:30] VITALS: BP 130/90; PULSE 122; TEMP 97.9
--- NOTE | 2017-07-01 22:39 | P.MSEPDOC ---
Presenting Problems - Arrival Data Date of Arrival on Unit: 07/01/17 Time of Arrival on Unit: 18:05 Mode of Transport: Ambulatory - Complaint OB-Reason for Admission/Chief Complaint: PIH Comment: eval for pih workup Medical History - Information : 5 Para: 1 Term: 1 : 0 Abortions: Spontaneous or Elective: 3 Number of Living Children: 1 - Gestational Age Gestational Age by CHRISTOS (wks/days): 32 Weeks and 6 Days Review of Systems - Review of Systems Constitutional: No problems Breast: No problems ENT: No problems Cardiovascular: No problems Respiratory: No problems Gastrointestinal: No problems Genitourinary: No problems Musculoskeletal: No problems Neurological: No problems Skin: No problems Comment: wrist soreness, leg cramps and foot cramps and elev b/p at home. Vital Signs - Temperature Temperature: 97.9 F Temperature Source: Temporal Artery Scan - Pulse Right Brachial Pulse Rate: 122 Pulse Assessment Method: Automatic Cuff - Respirations Respiratory Rate: 18 Oxygen Delivery Method: Room Air - Blood Pressure Right Arm Blood Pressure: 130/90 Blood Pressure Mean: 103 Blood Pressure Source: Automatic Cuff Medical Screen Scoring (Pre) - Cervical Exam Dilation: Exam Deferred Effacement: Exam Deferred Membranes: Intact - Uterine Contractions Frequency: N/A Duration: N/A Intensity: N/A - Maternal Vital Signs Maternal Temperature: N/A Maternal Blood Pressure: N/A Signs of Preeclampsia: N/A Maternal Respirations: N/A - Pain Assessment Pain Scale Used: Numeric (1 - 10) Pain Intensity: 2 Pain Frequency: Intermittent Pain Behavior: None Exhibited - Assessment Baseline FHR: 140 Heart Rate - NICHD Category: Category I (Normal) = 0 NST: Reactive Position: N/A Station: N/A - Total Score Total Score (Pre): 0 - Level of Risk Level of Risk: Low (0-5) Physician Notification (Pre) - Physician Notified Physician/Practitioner Notifed:: yesi Spoke With: yesi New Order Received: Yes - Notification Comment Comment: [facility] labs, lytes and mag and phosphorus, urinalysis. call results Medical Screen Scoring (Post) - Cervical Exam Dilation: Exam Deferred Effacement: Exam Deferred Membranes: Intact - Uterine Contractions Frequency: N/A - Maternal Vital Signs Maternal Temperature: N/A - Assessment Heart Rate - NICHD Category: Category I (Normal) = 0 NST: Reactive - Total Score Total Score (Post): 0 - Post Treatment Level of Risk Post Treatment Level of Risk: Low (0-5) Physician Notification (Post) - Physician Notified Physician Notified Date: 07/01/17 Physician Notified Time: 20:19 Spoke With: yesi New Order Received: Yes - Notification Comment Comment: PIH labs reported, d/c home, follow up 07/05 Disposition - Disposition OB Disposition: Discharge to home Discharge Date: 07/01/17 Discharge Time: 20:25 I agree with the RN Medical Screening Exam: Yes Risk & Benefit of care provided described in d/c instruction: Yes Diagnosis: GESTATIONAL HTN W/O SIGNIFICANT PROTEINURIA, THIRD TRIMESTER
== END 2017-07-01 20:25 | disposition home or self-care (01) ==
LOC: FBPOP 18:08
PROVIDERS: ATTEND Obstetrics & Gynecology
DX: O13.3 Gestational [pregnancy-induced] hypertension without significant proteinuria, third trimester (principal); Z3A.32 32 weeks gestation of pregnancy
CPT/HCPCS: 59025; 80051; 82565; 83615; 83735; 84100; 84450; 84460; 84550; 85025; 81001; G0463; 99215

== ENCOUNTER 2017-07-14 16:13 | Outpatient (CLI) | payer OTHER ==
[2017-07-14 17:15] LABS: Appearance,Urine Cloudy (Clear); Bacteria,Urine Many /hpf; Bilirubin,Urine Negative (Negative); Blood,Urine Negative (Negative); Color,Urine Yellow; Glucose,Urine (UA) Negative (Negative); Ketones,Urine Negative (Negative); Leukocyte Esterase,Urine Large (Negative); Mucus,Urine Moderate /hpf; PH, Urine 6.5 (5.0-8.0); Protein,Urine 1+ (Negative); RBC,Urine <1 /hpf (0-5); Specific Gravity,Urine 1.016 (1.001-1.035); Squamous Epithelial Cell,Urine 9 /hpf (0-4); Urobilinogen,Urine <2.0 mg/dL (<2.0); WBC,Urine 7 /hpf (0-5)
[2017-07-14 17:41] LABS: Basophils % (A) 0 %; Eosinophils # (A) 0.2 k/uL (0-0.7); Eosinophils % (A) 2 %; HCT 36.8 % (34.0-46.0); HGB 12.1 gm/dL (11.4-16.0); Lymphocytes # (A) 1.7 k/uL (1.0-4.8); Lymphocytes % (A) 15 %; MCH 25.8 pg (25.0-35.0); MCHC 32.8 g/dL (31.0-37.0); MCV 78.8 fL (80.0-100.0); Mean Platelet Volume 7.2; Monocytes # (A) 0.6 k/uL (0-1.0); Monocytes % (A) 5 %; Neutrophils % (A) 77 %; Platelet Count 284 k/uL (150-450); RBC 4.68 m/uL (3.80-5.40); RDW 14.6 % (11.5-15.5); WBC 11.6 k/uL (3.8-10.6)
[2017-07-14 17:48] LABS: ALT 29 U/L (9-52); AST 20 U/L (14-36); Uric Acid 4.1 mg/dL (3.7-7.4)
[2017-07-14 17:49] VITALS: BP 144/89; PULSE 88; RESP 17; TEMP 98.8
--- NOTE | 2017-07-16 11:22 | P.MSEPDOC ---
Presenting Problems - Arrival Data Date of Arrival on Unit: 07/14/17 Time of Arrival on Unit: 16:13 Mode of Transport: Ambulatory - Complaint OB-Reason for Admission/Chief Complaint: Pain Comment: pt reports history of pre eclampsia with first , pt is currently taking labetalol 100 mg bid and is seeing dr denney for bps, pt reports kaplan, denies blurred vision/epigastric pain, also reports cramping and lower back pain Medical History - Information : 5 Para: 1 Term: 1 : 0 Abortions: Spontaneous or Elective: 3 Number of Living Children: 1 - Gestational Age Gestational Age by CHRISTOS (wks/days): 34 Weeks and 5 Days Review of Systems - Review of Systems Constitutional: No problems Breast: No problems ENT: No problems Cardiovascular: No problems Respiratory: No problems Gastrointestinal: No problems Genitourinary: No problems Musculoskeletal: No problems Neurological: No problems Skin: No problems Vital Signs - Temperature Temperature: 98.8 F Temperature Source: Oral - Pulse Right Brachial Pulse Rate: 88 Pulse Assessment Method: Automatic Cuff - Respirations Respiratory Rate: 17 Oxygen Delivery Method: Room Air O2 Sat by Pulse Oximetry: 98 - Blood Pressure Right Arm Blood Pressure: 144/89 Blood Pressure Mean: 107 Blood Pressure Source: Automatic Cuff Medical Screen Scoring (Pre) - Cervical Exam Dilation: Exam Deferred Effacement: Exam Deferred Membranes: Intact - Uterine Contractions Frequency: N/A Duration: N/A Intensity: N/A - Maternal Vital Signs Maternal Temperature: N/A Maternal Blood Pressure: N/A Signs of Preeclampsia: N/A - Pain Assessment Pain Location and Character: Lower, Abdomen Pain Scale Used: Numeric (1 - 10) Pain Intensity: 6 Pain Management Goal: 4 Pain Description: *Acute, Cramping Pain Radiation Location: none Pain Frequency: Intermittent Pain Duration: 1 Pain Duration Units: Days Pain Behavior: None Exhibited Pain Aggravating Factors: None Non-Pharmacological Interventions: Darkened Room, Position/Reposition, Reduce Environmental Stimuli - Maternal Trauma Maternal Trauma: N/A - Assessment Baseline FHR: 150 Heart Rate - NICHD Category: Category I (Normal) = 0 NST: Reactive Position: N/A Station: N/A - Total Score Total Score (Pre): 0 - Level of Risk Level of Risk: Low (0-5) Physician Notification (Pre) - Physician Notified Physician Notified Date: 07/14/17 Physician Notified Time: 16:45 Physician/Practitioner Notifed:: Dr Rodriguez Spoke With: Dr Saul Prieto Order Received: Yes (orders for labs given) - Notification Comment Comment: lab will come to draw blood work Medical Screen Scoring (Post) - Cervical Exam Dilation: 1-3 cm = 1 Membranes: Intact - Uterine Contractions Frequency: N/A Duration: N/A Intensity: N/A - Maternal Vital Signs Maternal Temperature: N/A Maternal Blood Pressure: N/A Signs of Preeclampsia: N/A Maternal Respirations: N/A - Maternal Trauma Maternal Trauma: N/A - Assessment Heart Rate: 150 Heart Rate - NICHD Category: Category I (Normal) = 0 NST: Reactive Position: N/A - Total Score Total Score (Post): 1 - Post Treatment Level of Risk Post Treatment Level of Risk: Low (0-5) Physician Notification (Post) - Physician Notified Physician Notified Date: 07/14/17 Physician Notified Time: 18:10 Physician/Practitioner Notified:: Dr Rodriguez Spoke With: Dr Saul Prieto Order Received: Yes (dc home) - Notification Comment Comment: discussed lab results with dr rodriguez and blood pressures, pt ok to dc home to follow up in office monday for bp check and nst, pt verbalizes understanding Disposition - Disposition OB Disposition: Discharge to home, Written follow up instructions reviewed Discharge Date: 07/14/17 Discharge Time: 18:30 I agree with the RN Medical Screening Exam: Yes Risk & Benefit of care provided described in d/c instruction: Yes Diagnosis: GESTATIONAL HTN W/O SIGNIFICANT PROTEINURIA, THIRD TRIMESTER
== END 2017-07-14 18:30 | disposition home or self-care (01) ==
LOC: FBPOP 16:13
PROVIDERS: ATTEND Obstetrics & Gynecology
DX: O13.3 Gestational [pregnancy-induced] hypertension without significant proteinuria, third trimester (principal); Z3A.34 34 weeks gestation of pregnancy
CPT/HCPCS: 59025; 82570; 84156; 82565; 84450; 84460; 84550; 85025; 81001; G0463; 99215

== ENCOUNTER 2017-07-21 21:12 | Outpatient (CLI) | payer OTHER ==
[2017-07-21 22:09] VITALS: BP 136/98; PULSE 98; RESP 16; TEMP 96.6
--- NOTE | 2017-07-21 22:56 | P.MSEPDOC ---
Presenting Problems - Arrival Data Date of Arrival on Unit: 07/21/17 Time of Arrival on Unit: 21:12 Mode of Transport: Ambulatory - Complaint OB-Reason for Admission/Chief Complaint: Rule Out SROM Medical History - Information : 5 Para: 1 Term: 1 : 0 Abortions: Spontaneous or Elective: 3 Number of Living Children: 1 - Gestational Age Gestational Age by CHRISTOS (wks/days): 35 Weeks and 5 Days Review of Systems - Review of Systems Constitutional: No problems Breast: No problems ENT: No problems Cardiovascular: No problems Respiratory: No problems Gastrointestinal: No problems Genitourinary: No problems Musculoskeletal: No problems Neurological: No problems Skin: No problems Vital Signs - Temperature Temperature: 96.6 F Temperature Source: Temporal Artery Scan - Pulse Right Brachial Pulse Rate: 98 Pulse Assessment Method: Automatic Cuff - Respirations Respiratory Rate: 16 Oxygen Delivery Method: Room Air O2 Sat by Pulse Oximetry: 99 - Blood Pressure Right Arm Blood Pressure: 136/98 Blood Pressure Mean: 110 Blood Pressure Source: Automatic Cuff Medical Screen Scoring (Pre) - Cervical Exam Dilation: 1-3 cm = 1 Effacement: Exam Deferred Membranes: Intact - Uterine Contractions Frequency: N/A Duration: N/A Intensity: N/A - Maternal Vital Signs Maternal Temperature: N/A Maternal Blood Pressure: N/A Signs of Preeclampsia: N/A Maternal Respirations: N/A - Pain Assessment Pain Location and Character: Back Pain Scale Used: Numeric (1 - 10) Pain Intensity: 6 Pain Description: Sore Pain Frequency: Intermittent Pain Duration: 1 Pain Duration Units: Minutes Pain Behavior: None Exhibited Pain Aggravating Factors: Activity Non-Pharmacological Interventions: Distraction, Inactivity - Total Score Total Score (Pre): 1 - Level of Risk Level of Risk: Low (0-5) Physician Notification (Pre) - Physician Notified Physician Notified Date: 07/21/17 Physician Notified Time: 21:47 Physician/Practitioner Notifed:: Dr. Bose Spoke With: Dr. Bose New Order Received: Yes (D/c pt to home) - Notification Comment Comment: i agree with the RNs assessment. Disposition - Disposition OB Disposition: Discharge to home, Written follow up instructions reviewed Discharge Date: 07/21/17 Discharge Time: 21:55 I agree with the RN Medical Screening Exam: Yes Risk & Benefit of care provided described in d/c instruction: Yes Diagnosis: FALSE LABOR BEFORE 37 COMPLETED WEEKS OF GEST, THIRD TRI
== END 2017-07-21 21:55 | disposition home or self-care (01) ==
LOC: FBPOP 21:12
PROVIDERS: ATTEND Obstetrics & Gynecology
DX: Z03.79 Encounter for other suspected maternal and fetal conditions ruled out (principal); Z3A.35 35 weeks gestation of pregnancy; O47.03 False labor before 37 completed weeks of gestation, third trimester
CPT/HCPCS: 59025; 84112; G0463; 99213

== ENCOUNTER 2017-07-23 18:29 | Outpatient (CLI) | payer OTHER ==
[2017-07-23 19:06] VITALS: BP 134/89; PULSE 105; RESP 20; TEMP 96.9
--- NOTE | 2017-07-24 05:14 | P.MSEPDOC ---
Presenting Problems - Arrival Data Date of Arrival on Unit: 07/23/17 Time of Arrival on Unit: 18:30 Mode of Transport: Ambulatory - Complaint OB-Reason for Admission/Chief Complaint: Possible Onset of Labor, PIH Medical History - Information : 5 Para: 1 Term: 1 : 0 Abortions: Spontaneous or Elective: 3 Number of Living Children: 1 - Gestational Age Gestational Age by CHRISTOS (wks/days): 36 Weeks and 0 Days - History Complications: Chronic HTN Review of Systems - Review of Systems Constitutional: No problems Breast: No problems ENT: No problems Cardiovascular: No problems Respiratory: No problems Gastrointestinal: No problems Genitourinary: No problems Musculoskeletal: No problems Neurological: No problems Skin: No problems Comment: history of anxiety Vital Signs - Temperature Temperature: 96.9 F Temperature Source: Temporal Artery Scan - Pulse Brachial Pulse Rate: 105 Pulse Assessment Method: Automatic Cuff - Respirations Respiratory Rate: 20 O2 Sat by Pulse Oximetry: 98 - Blood Pressure Right Arm Blood Pressure: 134/89 Blood Pressure Mean: 104 Blood Pressure Source: Automatic Cuff Medical Screen Scoring (Pre) - Maternal Vital Signs Maternal Temperature: N/A Signs of Preeclampsia: N/A Maternal Respirations: N/A - Pain Assessment Pain Location and Character: Back, Abdomen Pain Scale Used: Numeric (1 - 10) Pain Intensity: 6 Pain Description: *Acute, Cramping Pain Frequency: Intermittent Pain Behavior: Vocalization Non-Pharmacological Interventions: Darkened Room, Distraction, Reduce Environmental Stimuli, Relaxation Technique - Maternal Trauma Maternal Trauma: N/A - Assessment Baseline FHR: 156 Heart Rate - NICHD Category: Category I (Normal) = 0 NST: Reactive - Total Score Total Score (Pre): 0 Physician Notification (Pre) - Physician Notified Physician Notified Date: 07/23/17 Physician Notified Time: 19:15 Physician/Practitioner Notifed:: dr suárez Spoke With: dr suárez New Order Received: Yes - Notification Comment Comment: check cervix if no change from previous visit discharge home Medical Screen Scoring (Post) - Cervical Exam Dilation: 1-3 cm = 1 Membranes: Intact - Uterine Contractions Frequency: N/A - Maternal Vital Signs Maternal Temperature: N/A Maternal Blood Pressure: Diastolic > 89 = 1 Signs of Preeclampsia: N/A Maternal Respirations: N/A - Pain Assessment Pain Intensity: 0 - Assessment Heart Rate: 150 Heart Rate - NICHD Category: Category I (Normal) = 0 NST: Reactive Position: N/A Station: N/A - Total Score Total Score (Post): 2 - Post Treatment Level of Risk Post Treatment Level of Risk: Low (0-5) Physician Notification (Post) - Physician Notified Physician Notified Date: 07/23/17 Physician Notified Time: 19:19 Disposition - Disposition OB Disposition: Discharge to home Discharge Date: 07/23/17 Discharge Time: 19:20 I agree with the RN Medical Screening Exam: Yes Risk & Benefit of care provided described in d/c instruction: Yes Diagnosis: FALSE LABOR BEFORE 37 COMPLETED WEEKS OF GEST, THIRD TRI
== END 2017-07-23 19:20 | disposition home or self-care (01) ==
LOC: FBPOP 18:29
PROVIDERS: ATTEND Obstetrics & Gynecology
DX: O47.03 False labor before 37 completed weeks of gestation, third trimester (principal); Z3A.36 36 weeks gestation of pregnancy
CPT/HCPCS: 59025; G0463; 99213

== ENCOUNTER 2017-07-24 15:45 | Outpatient (CLI) | payer OTHER ==
[2017-07-24 16:29] LABS: Basophils % (A) 0 %; Eosinophils # (A) 0.3 k/uL (0-0.7); Eosinophils % (A) 3 %; HCT 37.3 % (34.0-46.0); HGB 12.2 gm/dL (11.4-16.0); Lymphocytes # (A) 1.6 k/uL (1.0-4.8); Lymphocytes % (A) 15 %; MCH 25.6 pg (25.0-35.0); MCHC 32.7 g/dL (31.0-37.0); MCV 78.2 fL (80.0-100.0); Mean Platelet Volume 7.3; Monocytes # (A) 0.7 k/uL (0-1.0); Monocytes % (A) 6 %; Neutrophils # (A) 8.3 k/uL (1.3-7.7); Neutrophils % (A) 75 %; Platelet Count 310 k/uL (150-450); RBC 4.78 m/uL (3.80-5.40); RDW 14.4 % (11.5-15.5); WBC 11.1 k/uL (3.8-10.6)
[2017-07-24 16:33] VITALS: BP 138/84; PULSE 89; RESP 16; TEMP 97.4
[2017-07-24 16:42] LABS: Uric Acid 4.2 mg/dL (3.7-7.4)
[2017-07-24 16:46] LABS: Appearance,Urine Cloudy (Clear); Bacteria,Urine Few /hpf; Bilirubin,Urine Negative (Negative); Blood,Urine Negative (Negative); Color,Urine Yellow; Glucose,Urine (UA) Negative (Negative); Granular Casts,Urine 11 /lpf (0); Ketones,Urine Negative (Negative); Leukocyte Esterase,Urine Large (Negative); Mucus,Urine Rare /hpf; Nitrite,Urine Negative (Negative); PH, Urine 7.5 (5.0-8.0); Protein,Urine Trace (Negative); Specific Gravity,Urine 1.009 (1.001-1.035); Squamous Epithelial Cell,Urine 28 /hpf (0-4); Urobilinogen,Urine <2.0 mg/dL (<2.0); WBC,Urine 22 /hpf (0-5)
--- NOTE | 2017-07-24 17:13 | US ---
EXAMINATION TYPE: US OB >= 14 wk fetus DATE OF EXAM: 07/24/2017 COMPARISON: None CLINICAL HISTORY: growth and JENNA: bp irregular TECHNIQUE: OBTA GESTATIONAL AGE / DATING Physician Established: (36 weeks/1 days) EDC: 08/20/2017 Dates by LMP: unknown Dates by First Scan: (36 weeks/1 days) EDC: 08/20/2017 Dates by Current Scan: (36 weeks/3 days) EDC: 08/18/2017 SURVEY IUP: Single PLACENTA: Fundal PREVIA: No Previa JENNA: 12.7 cm Normal CERVICAL LENGTH (transabdominal: norm > 3.0cm): bladder not distended, unable to see BIOMETRY PRESENTATION: Vertex LIE: Longitudinal BPD: 9.1 cm 36 weeks / 5 days HC: 32.6 cm 36 weeks / 6 days AC: 33.8 cm 37 weeks / 5 days FL: 7.1 cm 36 weeks / 1 days ESTIMATED WEIGHT IN GRAMS: 3123 grams ESTIMATED WEIGHT IN LBS/OZ: 6 lbs. 14 oz. WEIGHT PERCENTAGE BASED ON ESTABLISHED DATES: 78% HC/AC: 1.0 Normal FL/AC: 20.9 Normal HEART RATE: 151 bpm RHYTHM: Normal IMPRESSION: cardiac rhythm is normal. There is satisfactory growth compared to the first exam of 01/10/2017.
--- NOTE | 2017-07-26 17:10 | P.MSEPDOC ---
Presenting Problems - Arrival Data Date of Arrival on Unit: 07/24/17 Time of Arrival on Unit: 15:45 Mode of Transport: Portable - Complaint OB-Reason for Admission/Chief Complaint: Other Comment: sent from office for lab work and u/s Medical History - Information : 5 Para: 1 Term: 1 : 0 Abortions: Spontaneous or Elective: 3 Number of Living Children: 1 - Gestational Age Gestational Age by CHRISTOS (wks/days): 36 Weeks and 1 Days - History Comment: hx of pih with last preg and this preg elevated bp's Review of Systems - Review of Systems Constitutional: No problems Breast: No problems ENT: No problems Cardiovascular: No problems Respiratory: No problems Gastrointestinal: No problems Genitourinary: No problems Musculoskeletal: No problems Neurological: No problems Skin: No problems Vital Signs - Temperature Temperature: 97.4 F Temperature Source: Tympanic - Pulse Right Radial Pulse Rate: 89 Pulse Assessment Method: Automatic Cuff - Respirations Respiratory Rate: 16 Oxygen Delivery Method: Room Air - Blood Pressure Right Arm Blood Pressure: 138/84 Blood Pressure Mean: 102 Blood Pressure Source: Automatic Cuff Medical Screen Scoring (Pre) - Cervical Exam Dilation: Exam Deferred - Uterine Contractions Frequency: N/A - Maternal Vital Signs Maternal Temperature: N/A Maternal Blood Pressure: N/A Signs of Preeclampsia: N/A Maternal Respirations: N/A - Pain Assessment Pain Scale Used: Numeric (1 - 10) Pain Intensity: 0 Pain Management Goal: 0 Pain Behavior: Vocalization - Maternal Trauma Maternal Trauma: N/A - Assessment Baseline FHR: 140 Heart Rate - NICHD Category: Category I (Normal) = 0 NST: Reactive Position: N/A Station: N/A - Total Score Total Score (Pre): 0 - Level of Risk Level of Risk: Low (0-5) Physician Notification (Pre) - Physician Notified Physician Notified Date: 07/24/17 Physician Notified Time: 15:45 Physician/Practitioner Notifed:: shruthi Spoke With: shruthi - Notification Comment Comment: pt sent from office with dr azevedo Medical Screen Scoring (Post) - Cervical Exam Dilation: Exam Deferred Effacement: Exam Deferred - Uterine Contractions Frequency: > 5 minutes apart = 1 Duration: N/A Intensity: N/A - Maternal Vital Signs Maternal Temperature: N/A Maternal Blood Pressure: N/A Signs of Preeclampsia: N/A Maternal Respirations: N/A - Maternal Trauma Maternal Trauma: N/A - Assessment Heart Rate: 140 Heart Rate - NICHD Category: Category I (Normal) = 0 NST: Reactive Position: N/A Station: N/A - Total Score Total Score (Post): 1 - Post Treatment Level of Risk Post Treatment Level of Risk: Low (0-5) Physician Notification (Post) - Physician Notified Physician Notified Date: 07/24/17 Physician Notified Time: 17:17 Physician/Practitioner Notified:: Shruthi Spoke With: Shruthi New Order Received: Yes Disposition - Disposition OB Disposition: Discharge to home Discharge Date: 07/24/17 Discharge Time: 17:20 I agree with the RN Medical Screening Exam: Yes Risk & Benefit of care provided described in d/c instruction: Yes Diagnosis: GESTATIONAL HTN W/O SIGNIFICANT PROTEINURIA, UNSP TRIMESTER
== END 2017-07-24 17:20 | disposition home or self-care (01) ==
LOC: FBPOP 15:45
PROVIDERS: ATTEND Obstetrics & Gynecology
DX: O13.3 Gestational [pregnancy-induced] hypertension without significant proteinuria, third trimester (principal); Z3A.36 36 weeks gestation of pregnancy
CPT/HCPCS: 59025; 76805; 81001; 83615; 84450; 84460; 84550; 85025

== ENCOUNTER 2017-07-28 18:03 | Outpatient (CLI) | payer OTHER ==
[2017-07-28 19:09] LABS: Amorphous Sediment,Urine Rare /hpf; Appearance,Urine Cloudy (Clear); Bilirubin,Urine Negative (Negative); Blood,Urine Negative (Negative); Color,Urine Yellow; Glucose,Urine (UA) Negative (Negative); Ketones,Urine Negative (Negative); Leukocyte Esterase,Urine Large (Negative); Mucus,Urine Few /hpf; Nitrite,Urine Negative (Negative); PH, Urine 6.5 (5.0-8.0); Protein,Urine Trace (Negative); RBC,Urine 14 /hpf (0-5); Squamous Epithelial Cell,Urine 43 /hpf (0-4); Urobilinogen,Urine <2.0 mg/dL (<2.0); WBC,Urine 61 /hpf (0-5)
[2017-07-28 19:12] LABS: Basophils % (A) 0 %; Eosinophils # (A) 0.2 k/uL (0-0.7); Eosinophils % (A) 2 %; HCT 36.7 % (34.0-46.0); Lymphocytes # (A) 1.9 k/uL (1.0-4.8); Lymphocytes % (A) 15 %; MCH 25.3 pg (25.0-35.0); MCHC 32.7 g/dL (31.0-37.0); MCV 77.5 fL (80.0-100.0); Mean Platelet Volume 7.1; Monocytes # (A) 0.7 k/uL (0-1.0); Monocytes % (A) 5 %; Neutrophils # (A) 10.1 k/uL (1.3-7.7); Neutrophils % (A) 77 %; Platelet Count 310 k/uL (150-450); RBC 4.74 m/uL (3.80-5.40); RDW 14.4 % (11.5-15.5); WBC 13.1 k/uL (3.8-10.6)
[2017-07-28 19:24] LABS: Uric Acid 3.9 mg/dL (3.7-7.4)
[2017-07-28] MEDS ORDERED: ACETAMINOPHEN TAB 325 MG TAB PO STA (19:50)
[2017-07-28 20:03] VITALS: BP 141/85; PULSE 107; RESP 16; TEMP 97.1
--- NOTE | 2017-08-01 08:48 | P.MSEPDOC ---
Presenting Problems - Arrival Data Date of Arrival on Unit: 07/28/17 Time of Arrival on Unit: 18:07 Mode of Transport: Ambulatory - Complaint OB-Reason for Admission/Chief Complaint: Headache, PIH Comment: headache increasing. bp up Medical History - Information : 5 Para: 1 Term: 1 : 0 Abortions: Spontaneous or Elective: 3 Number of Living Children: 1 - Gestational Age Gestational Age by CHRISTOS (wks/days): 36 Weeks and 5 Days Review of Systems - Review of Systems Constitutional: No problems Breast: No problems ENT: No problems Cardiovascular: No problems Respiratory: No problems Gastrointestinal: No problems Genitourinary: No problems Musculoskeletal: No problems Neurological: No problems Skin: No problems Vital Signs - Temperature Temperature: 97.1 F Temperature Source: Tympanic - Pulse Right Radial Pulse Rate: 107 Pulse Assessment Method: Automatic Cuff - Respirations Respiratory Rate: 16 Oxygen Delivery Method: Room Air O2 Sat by Pulse Oximetry: 98 - Blood Pressure Right Arm Blood Pressure: 141/85 Blood Pressure Mean: 103 Blood Pressure Source: Automatic Cuff Medical Screen Scoring (Pre) - Uterine Contractions Frequency: N/A Duration: N/A Intensity: N/A - Maternal Vital Signs Maternal Temperature: N/A Maternal Blood Pressure: Systolic >139 = 2 Signs of Preeclampsia: Headache = 1 Maternal Respirations: N/A - Pain Assessment Pain Location and Character: Head Pain Scale Used: Numeric (1 - 10) Pain Intensity: 7 Pain Description: Aching Pain Frequency: Intermittent Pain Behavior: Vocalization - Maternal Trauma Maternal Trauma: N/A - Assessment Baseline FHR: 140 Heart Rate - NICHD Category: Category I (Normal) = 0 NST: Reactive Position: N/A Station: N/A - Total Score Total Score (Pre): 3 - Level of Risk Level of Risk: Low (0-5) Physician Notification (Pre) - Physician Notified Physician Notified Date: 07/28/17 Physician Notified Time: 19:50 Physician/Practitioner Notifed:: yesi Spoke With: yesi New Order Received: Yes - Notification Comment Comment: discharge home. induction scheduled on monday. discharge instructions given Physician Notification (Post) - Physician Notified Physician Notified Date: 07/28/17 Physician Notified Time: 19:47 Physician/Practitioner Notified:: yesi Spoke With: yesi New Order Received: Yes - Notification Comment Comment: dr key ordered to give pt tylenol and some food. If headache improves, d/c home... pt stated she had tylenol at 5pm and does not want hospital food. Stated her headache was improved at 5/10. Disposition - Disposition OB Disposition: Discharge to home Discharge Date: 07/28/17 Discharge Time: 20:02 I agree with the RN Medical Screening Exam: Yes Risk & Benefit of care provided described in d/c instruction: Yes Diagnosis: GESTATIONAL HTN W/O SIGNIFICANT PROTEINURIA, THIRD TRIMESTER
== END 2017-07-28 20:02 | disposition home or self-care (01) ==
LOC: FBPOP 18:03
PROVIDERS: ATTEND Obstetrics & Gynecology
DX: O13.3 Gestational [pregnancy-induced] hypertension without significant proteinuria, third trimester (principal); Z3A.36 36 weeks gestation of pregnancy
CPT/HCPCS: 59025; 83615; 84450; 84460; 84520; 84550; 85025; 81001; G0463; 99215

== ENCOUNTER 2017-07-31 06:00 | Inpatient (IN) | payer OTHER ==
[2017-08-01] MEDS ORDERED: METHYLERGONOVINE 0.2 MG/ML 1 ML AMP IM PRN (06:32)
[2017-08-01] MEDS ORDERED: OXYTOCIN 10 UNIT/ML 1 ML VIAL IM PRN (06:32)
[2017-08-01] MEDS ORDERED: TERBUTALINE 1 MG/ML VIAL SQ PRN (06:32)
[2017-08-01] MEDS ORDERED: CARBOPROST TROMETHAMINE 250 MCG/ML 1 ML AMP IM PRN (06:32)
[2017-08-01] MEDS ORDERED: LIDOCAINE 1% (PF) 10 MG/ML (30 ML SDV) SQ PRN (06:32)
[2017-08-01] MEDS ORDERED: AMPICILLIN 2,000 MG in SODIUM CHLORIDE 0.9% 100 ML IVPB STA (06:32)
[2017-08-01] MEDS: LACTATED RINGERS 1,000 ML IV SCH ×2 (06:44→12:24)
[2017-08-01] MEDS ORDERED: OXYTOCIN 20 UNITS/1000 ML NS 1,000 ML IV SCH (06:45)
[2017-08-01 07:07] LABS: Basophils % (A) 0 %; Eosinophils # (A) 0.2 k/uL (0-0.7); Eosinophils % (A) 2 %; HCT 36.2 % (34.0-46.0); HGB 12.5 gm/dL (11.4-16.0); Lymphocytes # (A) 2.4 k/uL (1.0-4.8); Lymphocytes % (A) 21 %; MCH 26.3 pg (25.0-35.0); MCHC 34.5 g/dL (31.0-37.0); MCV 76.3 fL (80.0-100.0); Mean Platelet Volume 6.7; Monocytes # (A) 0.7 k/uL (0-1.0); Monocytes % (A) 6 %; Neutrophils # (A) 7.9 k/uL (1.3-7.7); Neutrophils % (A) 69 %; Platelet Count 311 k/uL (150-450); RBC 4.75 m/uL (3.80-5.40); RDW 14.3 % (11.5-15.5); WBC 11.4 k/uL (3.8-10.6)
[2017-08-01] MEDS ORDERED: LABETALOL 100 MG TAB PO SCH ×2 (08:04→21:00)
[2017-08-01] MEDS: LABETALOL 100 MG TAB PO SCH ×2 (08:16→20:44)
[2017-08-01] MEDS: AMPICILLIN 1,000 MG in SODIUM CHLORIDE 0.9% 50 ML IVPB SCH (10:51)
[2017-08-01] MEDS ORDERED: BUPIVACAINE (PF) 0.25% 30 ML VIAL ONE (12:10)
[2017-08-01] MEDS ORDERED: fentaNYL (PF) 50 MCG/ML 5 ML AMP ONE (12:10)
[2017-08-01] MEDS ORDERED: SODIUM CHLORIDE 0.9% 100 ML BAG ONE (12:10)
[2017-08-01] MEDS ORDERED: BUPIVACAINE (PF) 0.25% 25 ML, fentaNYL (PF) 200 MCG in SODIUM CHLORIDE 0.9% 71 ML EPIDURAL ONE (12:38)
[2017-08-01] MEDS ORDERED: LANOLIN CREAM 5 GM TUBE TOPICAL PRN (15:13)
[2017-08-01] MEDS ORDERED: diphenhydrAMINE 50 MG CAP PO PRN (15:13)
[2017-08-01] MEDS ORDERED: WITCH HAZEL 1 EACH MED..PAD TOPICAL PRN (15:13)
[2017-08-01] MEDS ORDERED: ZOLPIDEM 5 MG TAB PO PRN (15:13)
[2017-08-01] MEDS ORDERED: diphenhydrAMINE 50 MG/ML 1 ML VIAL IVP PRN ×2 (15:13)
[2017-08-01] MEDS ORDERED: HYDROCORTISONE 2.5% RECTAL CREAM 30 GM TUBE RECTAL PRN (15:13)
[2017-08-01] MEDS ORDERED: ACETAMINOPHEN TAB 325 MG TAB PO PRN (15:13)
[2017-08-01] MEDS ORDERED: SIMETHICONE 80 MG CHEWABLE PO PRN (15:13)
[2017-08-01] MEDS ORDERED: IBUPROFEN 600 MG TAB PO PRN (15:13)
[2017-08-01] MEDS ORDERED: Acetaminophen-Codeine 300-30mg TAB PO PRN ×2 (15:13)
[2017-08-01] MEDS ORDERED: BENZOCAINE/MENTHOL SPRAY 1 GM/SPRAY AEROSOL TOPICAL PRN (15:13)
[2017-08-01] MEDS ORDERED: diphenhydrAMINE 25 MG CAP PO PRN (15:13)
--- NOTE | 2017-08-01 16:48 | P.HPOB ---
History of Present Illness H&P Date: 08/01/17 Chief Complaint: Intrauterine at term: Cholestasis of : Hypertension Bryn is a 27-year-old at 37 weeks gestation who arrives for induction of labor due to cholestasis of and hypertension. Her blood pressures have been relatively well-controlled with labetalol however recently she has had several that were slightly elevated. Preeclamptic labs however have all been normal. We have comanage this case with maternal medicine. Pertinent labs do include A- blood type rubella nonimmune hepatitis B surface antigen was negative groupie strep was positive HIV was negative and RPR was nonreactive. She had a cholestasis with her first or delivery rather and earlier in the she had symptoms very consistent with cholestasis. Labs never bore out this as a diagnosis but she continued to have some itching on her palms throughout the . While her labs did not reveal this as an issue, her blood pressure still have been and she has been on labetalol 100 mg twice a day. On physical exam this a well-developed well- nourished female whose HEENT is unremarkable. Heart regular, lungs clear, extremities are without pain. Osteopathic exam is unremarkable. Pelvic exam is performed she is dilated to 2 cm artificial rupture membranes was performed and clear fluid is noted. heart tones are in the 130s to 140s and are reactive. Assessment intrauterine at term. Plan expect spontaneous vaginal delivery with Pitocin augmentation of labor and an expectation will use an epidural for analgesia. Past Medical History Past Medical History: No Reported History Additional Past Medical History / Comment(s): gestational HTN, cholestasis History of Any Multi-Drug Resistant Organisms: None Reported Past Surgical History: No Surgical Hx Reported Past Anesthesia/Blood Transfusion Reactions: No Reported Reaction Past Psychological History: Anxiety Smoking Status: Never smoker Past Alcohol Use History: None Reported Past Drug Use History: None Reported - Past Family History Father Family Medical History: Hypertension Mother Family Medical History: Cancer Medications and Allergies Home Medications Medication Instructions Recorded Confirmed Type 5-Hydroxytryptophan (5-Htp) [5-Htp 100 mg PO DAILY 04/18/17 08/01/17 History (Natrol)] Doxylamine Succinate [Unisom] 50 mg PO HS 04/18/17 08/01/17 History Pnv,Calcium 72/Iron/Folic Acid 1 tab PO DAILY 04/18/17 08/01/17 History [ Plus Tablet] Ranitidine HCl [Zantac] 150 mg PO HS 04/18/17 08/01/17 History Labetalol [Trandate] 100 mg PO BID 05/29/17 08/01/17 History Cholecalciferol (Vitamin D3) 2,000 mg PO DAILY 07/23/17 08/01/17 History [Vitamin D3] Allergies Allergy/AdvReac Type Severity Reaction Status Date / Time alprazolam [From Xanax] Allergy Severe Anaphylaxis Verified 08/01/17 06:31 Egg Derived Allergy Severe Rash/Hives Verified 08/01/17 06:31 Latex, Natural Rubber Allergy Mild Rash/Hives Verified 08/01/17 06:31 Exam Osteopathic Statement: *. No significant issues noted on an osteopathic structural exam other than those noted in the History and Physical/Consult. - Vital Signs Vital signs: Vital Signs Temp Pulse Resp BP 08/01/17 16:10 85 16 141/61 08/01/17 15:55 83 16 143/85 08/01/17 15:43 86 16 140/76 08/01/17 15:25 97.4 F L 96 16 129/81 08/01/17 15:10 101 H 16 130/74 08/01/17 06:33 97.8 F 102 H 16 142/98 Intake and Output 08/01/17 08/01/17 08/01/17 06:59 14:59 22:59 Intake Total 23.1 Balance 23.1 Intake: Intake, IV Titration 23.1 Amount Oxytocin 20 Units/1000 ml 23.1 Ns 1,000 ml @ 1 MILLIUNIT/MIN 3 mls/hr IV .Q24H [facility] Rx#:[id number] Other: Weight 112.491 kg Results Result Diagrams: 08/01/17 06:50 Abnormal Lab Results - Last 24 Hours (Table) 08/01/17 Range/Units 06:50 WBC 11.4 H (3.8-10.6) k/uL MCV 76.3 L (80.0-100.0) fL Neutrophils # 7.9 H (1.3-7.7) k/uL
--- NOTE | 2017-08-01 16:50 | P.PROBDLV ---
Vaginal Delivery Note - . Vaginal Delivery Note: Patient progressed complete and pushed with spontaneous vaginal delivery of a viable female over an second degree midline laceration. Following delivery of the head there was some difficulty in delivering the anterior shoulder. Baby was delivered from left occiput essentially transverse position. Due to me not wanting to put too much stress on the anterior shoulder I did go in and deliver the posterior shoulder first with grasping underneath the axilla and rotating in a counterclockwise fashion to allow the anterior shoulder to come under the pubic bone. Once baby was delivered mouth nares were bulb suctioned and baby was placed on mother's abdomen where the umbilical cord was allowed to pulsate for 20 seconds prior to clamping and cutting. Nursery personnel was present to assume care. Placenta was then delivered intact and Pitocin was added to the IV. scores were 9 and 9 at one and 5 minutes respectively and the weight was 7 lbs. 1 oz. Second-degree midline laceration was then repaired with 3-0 Vicryl following 1% Xylocaine for analgesia. Both mother and baby are stable following delivery.
[2017-08-01] MEDS ORDERED: Rhogam IMMUNE GLOBULIN 1,500 UNIT/1 ML IM ONE (18:38)
[2017-08-01] MEDS: SENNOSIDES-DOCUSATE SODIUM 1 EACH TAB PO SCH (23:14)
[2017-08-02] MEDS: SENNOSIDES-DOCUSATE SODIUM 1 EACH TAB PO SCH ×3 (00:06→12:36)
[2017-08-02] MEDS: AMPICILLIN 1,000 MG in SODIUM CHLORIDE 0.9% 50 ML IVPB SCH (02:55)
[2017-08-02] MEDS: LABETALOL 100 MG TAB PO SCH (08:30)
--- NOTE | 2017-08-02 08:53 | P.DS ---
Providers Date of admission: 08/01/17 06:19 Expected date of discharge: 08/02/17 Attending physician: Darnell Hawkins Primary care physician: Stated None Hospital Course: Bryn is doing very well day 1. She is ambulating, voiding, and she is tolerating her diet. She voices no complaints. Vital signs are stable and afebrile. She is not had an elevated blood pressures since approximately 8: 00 last night. We'll plan to continue the labetalol for now, and she will see me in 1 week for blood pressure check. We'll also plan to have her see her primary care doctor within the next 2 weeks at taken readdress her blood pressure medication and verify that she needs to continue. Otherwise she'll see me in 6 weeks for exam. Discharge instructions were thoroughly reviewed and all questions were answered for her prior to her discharge. On physical exam her heart is regular, lungs are clear, extremities are without pain. Abdomen is soft uterus is firm below the umbilicus and lochia is reported to be light. Assessment day 1. Plan discharged home follow up with me in 1 week for blood pressure check. All the questions are answered and she is stable for discharge this time. Patient Condition at Discharge: Good Plan - Discharge Summary New Discharge Prescriptions: No Action Ranitidine HCl [Zantac] 150 mg PO HS Pnv,Calcium 72/Iron/Folic Acid [ Plus Tablet] 1 tab PO DAILY Doxylamine Succinate [Unisom] 50 mg PO HS 5-Hydroxytryptophan (5-Htp) [5-Htp (Natrol)] 100 mg PO DAILY Labetalol [Trandate] 100 mg PO BID Cholecalciferol (Vitamin D3) [Vitamin D3] 2,000 mg PO DAILY Discharge Medication List 5-Hydroxytryptophan (5-Htp) [5-Htp (Natrol)] 100 mg PO DAILY 04/18/17 [History] Doxylamine Succinate [Unisom] 50 mg PO HS 04/18/17 [History] Pnv,Calcium 72/Iron/Folic Acid [ Plus Tablet] 1 tab PO DAILY 04/18/17 [ History] Ranitidine HCl [Zantac] 150 mg PO HS 04/18/17 [History] Labetalol [Trandate] 100 mg PO BID 05/29/17 [History] Cholecalciferol (Vitamin D3) [Vitamin D3] 2,000 mg PO DAILY 07/23/17 [History] Follow up Appointment(s)/Referral(s): Darnell Hawkins DO [Doctor of Osteopathic Medicine] - 6 Weeks Activity/Diet/Wound Care/Special Instructions: No heavy lifting, limit stairs and driving and pelvic rest. If any high temperatures, heavy bleeding, or severe pain call my office. Review of preeclampsia was also discussed as a possibility although very unlikely. We discussed should she have any severe headaches epigastric pain cigarette swelling or other signs or symptoms that are concerning to report to emergency room immediately.
[2017-08-02 08:55] VITALS: RESP 20
[2017-08-02 08:55] LABS: Basophils % (A) 0 %; Eosinophils # (A) 0.2 k/uL (0-0.7); Eosinophils % (A) 2 %; HCT 34.3 % (34.0-46.0); HGB 11.1 gm/dL (11.4-16.0); Lymphocytes # (A) 2.4 k/uL (1.0-4.8); Lymphocytes % (A) 19 %; MCH 25.4 pg (25.0-35.0); MCHC 32.4 g/dL (31.0-37.0); MCV 78.4 fL (80.0-100.0); Mean Platelet Volume 7.4; Monocytes # (A) 0.9 k/uL (0-1.0); Monocytes % (A) 7 %; Neutrophils # (A) 9.2 k/uL (1.3-7.7); Neutrophils % (A) 72 %; Platelet Count 250 k/uL (150-450); RBC 4.37 m/uL (3.80-5.40); RDW 14.6 % (11.5-15.5); WBC 12.9 k/uL (3.8-10.6)
[2017-08-02 15:14] VITALS: BP 130/77; PULSE 90; TEMP 98.4
== END 2017-08-02 15:55 | disposition home or self-care (01) | DRG 775 ==
LOC: 4FBP 08-01 06:19
PROVIDERS: ADMIT Obstetrics & Gynecology; ATTEND Obstetrics & Gynecology
PROC: 3E033VJ Introduction of Other Hormone into Peripheral Vein, Percutaneous Approach (ICD-10-PCS; principal; 2017-08-01)
PROC: 00HU33Z Insertion of Infusion Device into Spinal Canal, Percutaneous Approach (ICD-10-PCS; principal; 2017-08-01)
PROC: 3E0R3NZ Introduction of Analgesics, Hypnotics, Sedatives into Spinal Canal, Percutaneous Approach (ICD-10-PCS; principal; 2017-08-01)
PROC: 10E0XZZ Delivery of Products of Conception, External Approach (ICD-10-PCS; principal; 2017-08-01)
PROC: 10907ZC Drainage of Amniotic Fluid, Therapeutic from Products of Conception, Via Natural or Artificial Opening (ICD-10-PCS; principal; 2017-08-01)
PROC: 0KQM0ZZ Repair Perineum Muscle, Open Approach (ICD-10-PCS; principal; 2017-08-01)
DX: O13.4 Gestational [pregnancy-induced] hypertension without significant proteinuria, complicating childbirth (principal); K83.1 Obstruction of bile duct; O26.62 Liver and biliary tract disorders in childbirth; O99.344 Other mental disorders complicating childbirth; O70.1 Second degree perineal laceration during delivery; Z3A.37 37 weeks gestation of pregnancy; Z37.0 Single live birth; F41.9 Anxiety disorder, unspecified; Z79.899 Other long term (current) drug therapy
CPT/HCPCS: 85025; 85461; 88307

== ENCOUNTER 2017-10-15 14:19 | Emergency (ER) | payer OTHER ==
[2017-10-15 14:24] VITALS: TEMP 98.5
[2017-10-15] MEDS ORDERED: SODIUM CHLORIDE 0.9% 1,000 ML IV STA (14:28)
--- NOTE | 2017-10-15 14:49 | ED ---
Abdominal Pain HPI - General Chief Complaint: Abdominal Pain Stated Complaint: Rib/side pain Time Seen by Provider: 10/15/17 14:28 Source: patient, RN notes reviewed Mode of arrival: ambulatory Limitations: no limitations - History of Present Illness Initial Comments: This is a 27-year-old female presents emergency Department with chief complaint of right quadrant abdominal pain. She's had on and off symptoms over the last 2 months and she does state that she is 2 months . Patient states that she's had elevated liver enzymes during her . Patient with intermittent nausea no vomiting no diarrhea no constipation. She denies any GERD type symptoms. Patient had no prior abdominal surgeries. She did have vaginal delivery. - Related Data Home Medications Medication Instructions Recorded Confirmed 5-Hydroxytryptophan (5-Htp) [5-Htp 100 mg PO DAILY 04/18/17 08/01/17 (Natrol)] Doxylamine Succinate [Unisom] 50 mg PO HS 04/18/17 08/01/17 Pnv,Calcium 72/Iron/Folic Acid 1 tab PO DAILY 04/18/17 08/01/17 [ Plus Tablet] Ranitidine HCl [Zantac] 150 mg PO HS 04/18/17 08/01/17 Labetalol [Trandate] 100 mg PO BID 05/29/17 08/01/17 Cholecalciferol (Vitamin D3) 2,000 mg PO DAILY 07/23/17 08/01/17 [Vitamin D3] Previous Rx's Medication Instructions Recorded Ondansetron Odt [Zofran Odt] 4 mg PO Q8HR PRN #10 tab 10/15/17 Allergies Allergy/AdvReac Type Severity Reaction Status Date / Time alprazolam [From Xanax] Allergy Severe Anaphylaxis Verified 10/15/17 14:24 Egg Derived Allergy Severe Rash/Hives Verified 10/15/17 14:24 Latex, Natural Rubber Allergy Mild Rash/Hives Verified 10/15/17 14:24 Review of Systems ROS Statement: Those systems with pertinent positive or pertinent negative responses have been documented in the HPI. ROS Other: All systems not noted in ROS Statement are negative. Past Medical History Past Medical History: No Reported History Additional Past Medical History / Comment(s): gestational HTN, cholestasis History of Any Multi-Drug Resistant Organisms: None Reported Past Surgical History: No Surgical Hx Reported Past Anesthesia/Blood Transfusion Reactions: No Reported Reaction Past Psychological History: Anxiety Smoking Status: Never smoker Past Alcohol Use History: None Reported Past Drug Use History: None Reported - Past Family History Father Family Medical History: Hypertension Mother Family Medical History: Cancer General Exam Limitations: no limitations General appearance: alert, in no apparent distress Head exam: Present: atraumatic, normocephalic, normal inspection Respiratory exam: Present: normal lung sounds bilaterally. Absent: respiratory distress, wheezes, rales, rhonchi, stridor Cardiovascular Exam: Present: regular rate, normal rhythm, normal heart sounds. Absent: systolic murmur, diastolic murmur, rubs, gallop, clicks GI/Abdominal exam: Present: soft, tenderness (Mild right upper quadrant tenderness), normal bowel sounds. Absent: distended, guarding, rebound, rigid Back exam: Absent: CVA tenderness (R), CVA tenderness (L) Skin exam: Present: warm, dry, intact, normal color. Absent: rash Course Vital Signs 10/15/17 14:22 Temperature 98.5 F Pulse Rate 79 Respiratory 20 Rate Blood Pressure 157/83 O2 Sat by Pulse 100 Oximetry Medical Decision Making - Medical Decision Making 27-year-old female presented from chief complaint right quadrant abdominal pain. Patient lab work and ultrasound. Shows possibly SHADOWING stone. Patient will follow-up with on-call surgery return parameters were discussed. - Lab Data Result diagrams: 10/15/17 14:57 10/15/17 14:57 Lab Results 10/15/17 10/15/17 10/15/17 Range/Units 14:57 14:57 15:00 WBC 6.5 (3.8-10.6) k/uL RBC 5.19 (3.80-5.40) m/uL Hgb 13.5 (11.4-16.0) gm/dL Hct 40.7 (34.0-46.0) % MCV 78.5 L (80.0-100.0) fL MCH 25.9 (25.0-35.0) pg MCHC 33.0 (31.0-37.0) g/dL RDW 13.9 (11.5-15.5) % Plt Count 261 (150-450) k/uL Neutrophils % 66 % Lymphocytes % 25 % Monocytes % 5 % Eosinophils % 3 % Basophils % 0 % Neutrophils # 4.3 (1.3-7.7) k/uL Lymphocytes # 1.6 (1.0-4.8) k/uL Monocytes # 0.3 (0-1.0) k/uL Eosinophils # 0.2 (0-0.7) k/uL Basophils # 0.0 (0-0.2) k/uL Sodium 144 (137-145) mmol/L Potassium 3.9 (3.5-5.1) mmol/L Chloride 106 (98-107) mmol/L Carbon Dioxide 22 (22-30) mmol/L Anion Gap 16 mmol/L BUN 9 (7-17) mg/dL Creatinine 0.64 (0.52-1.04) mg/dL Est GFR (CKD-EPI)AfAm >90 (>60 ml/min/1.73 sqM) Est GFR (CKD-EPI)NonAf >90 (>60 ml/min/1.73 sqM) Glucose 102 H (74-99) mg/dL Calcium 9.3 (8.4-10.2) mg/dL Total Bilirubin 0.4 (0.2-1.3) mg/dL AST 30 (14-36) U/L ALT 49 (9-52) U/L Alkaline Phosphatase 57 (38-126) U/L Total Protein 7.1 (6.3-8.2) g/dL Albumin 4.4 (3.5-5.0) g/dL Amylase 62 (30-110) U/L Lipase 71 (23-300) U/L Urine Color Light Yellow Urine Appearance Clear (Clear) Urine pH 7.5 (5.0-8.0) Ur Specific [place] 1.015 (1.001-1.035) Urine Protein Negative (Negative) Urine Glucose (UA) Negative (Negative) Urine Ketones Negative (Negative) Urine Blood Negative (Negative) Urine Nitrite Negative (Negative) Urine Bilirubin Negative (Negative) Urine Urobilinogen <2.0 (<2.0) mg/dL Ur Leukocyte Esterase Moderate H (Negative) Urine RBC 1 (0-5) /hpf Urine WBC 11 H (0-5) /hpf Ur Squamous Epith Cells 6 H (0-4) /hpf Amorphous Sediment Rare H (None) /hpf Urine Mucus Rare H (None) /hpf Urine HCG, Qual (Not Detectd) 10/15/17 Range/Units 15:00 WBC (3.8-10.6) k/uL RBC (3.80-5.40) m/uL Hgb (11.4-16.0) gm/dL Hct (34.0-46.0) % MCV (80.0-100.0) fL MCH (25.0-35.0) pg MCHC (31.0-37.0) g/dL RDW (11.5-15.5) % Plt Count (150-450) k/uL Neutrophils % % Lymphocytes % % Monocytes % % Eosinophils % % Basophils % % Neutrophils # (1.3-7.7) k/uL Lymphocytes # (1.0-4.8) k/uL Monocytes # (0-1.0) k/uL Eosinophils # (0-0.7) k/uL Basophils # (0-0.2) k/uL Sodium (137-145) mmol/L Potassium (3.5-5.1) mmol/L Chloride (98-107) mmol/L Carbon Dioxide (22-30) mmol/L Anion Gap mmol/L BUN (7-17) mg/dL Creatinine (0.52-1.04) mg/dL Est GFR (CKD-EPI)AfAm (>60 ml/min/1.73 sqM) Est GFR (CKD-EPI)NonAf (>60 ml/min/1.73 sqM) Glucose (74-99) mg/dL Calcium (8.4-10.2) mg/dL Total Bilirubin (0.2-1.3) mg/dL AST (14-36) U/L ALT (9-52) U/L Alkaline Phosphatase (38-126) U/L Total Protein (6.3-8.2) g/dL Albumin (3.5-5.0) g/dL Amylase (30-110) U/L Lipase (23-300) U/L Urine Color Urine Appearance (Clear) Urine pH (5.0-8.0) Ur Specific [place] (1.001-1.035) Urine Protein (Negative) Urine Glucose (UA) (Negative) Urine Ketones (Negative) Urine Blood (Negative) Urine Nitrite (Negative) Urine Bilirubin (Negative) Urine Urobilinogen (<2.0) mg/dL Ur Leukocyte Esterase (Negative) Urine RBC (0-5) /hpf Urine WBC (0-5) /hpf Ur Squamous Epith Cells (0-4) /hpf Amorphous Sediment (None) /hpf Urine Mucus (None) /hpf Urine HCG, Qual Not Detected (Not Detectd) Disposition Clinical Impression: Abdominal pain, Biliary colic Disposition: HOME SELF-CARE Condition: Stable Instructions: Abdominal Pain (ED) Additional Instructions: Please return to the Emergency Department if symptoms worsen or any other concerns. Prescriptions: Ondansetron Odt [Zofran Odt] 4 mg PO Q8HR PRN #10 tab PRN Reason: Nausea Is patient prescribed a controlled substance at d/c from ED?: No Referrals: Chris Cade MD [Primary Care Provider] - 1-2 days Time of Disposition: 17:16
[2017-10-15 15:07] LABS: Basophils % (A) 0 %; Eosinophils # (A) 0.2 k/uL (0-0.7); Eosinophils % (A) 3 %; HCT 40.7 % (34.0-46.0); HGB 13.5 gm/dL (11.4-16.0); Lymphocytes # (A) 1.6 k/uL (1.0-4.8); Lymphocytes % (A) 25 %; MCH 25.9 pg (25.0-35.0); MCV 78.5 fL (80.0-100.0); Mean Platelet Volume 6.6; Monocytes # (A) 0.3 k/uL (0-1.0); Monocytes % (A) 5 %; Neutrophils # (A) 4.3 k/uL (1.3-7.7); Neutrophils % (A) 66 %; Platelet Count 261 k/uL (150-450); RBC 5.19 m/uL (3.80-5.40); RDW 13.9 % (11.5-15.5); WBC 6.5 k/uL (3.8-10.6)
[2017-10-15 15:18] LABS: ALT 49 U/L (9-52); AST 30 U/L (14-36); Albumin 4.4 g/dL (3.5-5.0); Alkaline Phosphatase 57 U/L (38-126); Amylase 62 U/L (30-110); Anion Gap 16 mmol/L; Blood Urea Nitrogen 9 mg/dL (7-17); Calcium 9.3 mg/dL (8.4-10.2); Carbon Dioxide 22 mmol/L (22-30); Chloride 106 mmol/L (98-107); Glucose 102 mg/dL (74-99); Lipase 71 U/L (23-300); Potassium 3.9 mmol/L (3.5-5.1); Sodium 144 mmol/L (137-145); Total Bilirubin 0.4 mg/dL (0.2-1.3); Total Protein 7.1 g/dL (6.3-8.2)
[2017-10-15] MEDS ORDERED: KETOROLAC 30 MG/ML 1 ML VIAL IVP STA (15:22)
[2017-10-15 15:25] LABS: Amorphous Sediment,Urine Rare /hpf; Appearance,Urine Clear (Clear); Bilirubin,Urine Negative (Negative); Blood,Urine Negative (Negative); Color,Urine Light Yellow; Glucose,Urine (UA) Negative (Negative); Ketones,Urine Negative (Negative); Leukocyte Esterase,Urine Moderate (Negative); Mucus,Urine Rare /hpf; Nitrite,Urine Negative (Negative); PH, Urine 7.5 (5.0-8.0); Protein,Urine Negative (Negative); RBC,Urine 1 /hpf (0-5); Specific Gravity,Urine 1.015 (1.001-1.035); Squamous Epithelial Cell,Urine 6 /hpf (0-4); Urobilinogen,Urine <2.0 mg/dL (<2.0); WBC,Urine 11 /hpf (0-5)
--- NOTE | 2017-10-15 16:59 | US ---
EXAMINATION TYPE: US gallbladder DATE OF EXAM: 10/15/2017 COMPARISON: NONE CLINICAL HISTORY: Pain. EXAM MEASUREMENTS: Liver Length: 16.8 cm Gallbladder Wall: 0.2 cm CBD: 0.3 cm Right Kidney: 11.8 x 4.4 x 4.5 cm Patient of large body habitus with extensive overlying midline bowel gas Pancreas: Obscured by bowel gas Liver: upper limits of normal in size Gallbladder: wnl Evidence for sonographic Santana's sign: no CBD: wnl Right Kidney: wnl Suboptimal study as noted above. Gallstone is seen without shadowing mobile gallstones. IMPRESSION: Suboptimal study but there are no gallstones or secondary ultrasound evidence for acute c holecystitis
[2017-10-15 17:40] VITALS: BP 145/88; PULSE 66; RESP 16
== END 2017-10-15 17:41 | disposition home or self-care (01) ==
LOC: EC 14:19
DX: K80.50 Calculus of bile duct without cholangitis or cholecystitis without obstruction (principal); F41.9 Anxiety disorder, unspecified; Z79.899 Other long term (current) drug therapy; Z91.040 Latex allergy status; Z91.012 Allergy to eggs; Z88.8 Allergy status to other drugs, medicaments and biological substances
CPT/HCPCS: 36415; 80053; 82150; 83690; 85025; 81001; 81025; 76705; 99284; 96374; 96361; J1885

== ENCOUNTER 2018-12-08 21:49 | Emergency (ER) | payer OTHER ==
--- NOTE | 2018-12-08 23:03 | ED ---
Extremity Problem HPI - General Chief complaint: Extremity Problem,Nontraumatic Stated complaint: Leg pain Time Seen by Provider: 12/08/18 22:49 Source: patient, RN notes reviewed, old records reviewed Mode of arrival: ambulatory Limitations: no limitations - History of Present Illness Initial comments: This is a 28-year-old female the ER for evaluation. Patient is history of varicose veins and varicosities. No prior history of DVT. No travel history or sick contacts denies chest pain or shortness of breath. Patient has complaints of increasing swelling and erythema left throat Shorty by her knee. Patient does say for evaluation. Symptoms of redness and erythema heart mildly increasing. Denies any fever MD Complaint: extremity swelling, other -: hour(s) Location: left, lower extremity History of Same: No Radiation: none Severity scale (1-10): 2 Quality: burning Consistency: constant Improves with: nothing Worsens with: nothing Associated Symptoms: denies other symptoms - Related Data Home Medications Medication Instructions Recorded Confirmed Escitalopram Oxalate [Lexapro] 10 mg PO DAILY 12/08/18 12/08/18 Lisinopril [Prinivil] 10 mg PO DAILY 12/08/18 12/08/18 Previous Rx's Medication Instructions Recorded Cephalexin [Keflex] 500 mg PO Q6HR #40 cap 12/09/18 Naproxen [Naprosyn] 500 mg PO Q12HR PRN #30 tab 12/09/18 Allergies Allergy/AdvReac Type Severity Reaction Status Date / Time alprazolam [From Xanax] Allergy Severe Anaphylaxis Verified 12/08/18 22:20 Egg Derived Allergy Severe Rash/Hives Verified 12/08/18 22:20 Latex, Natural Rubber Allergy Mild Rash/Hives Verified 12/08/18 22:20 Review of Systems ROS Statement: Those systems with pertinent positive or pertinent negative responses have been documented in the HPI. ROS Other: All systems not noted in ROS Statement are negative. Past Medical History Past Medical History: No Reported History Additional Past Medical History / Comment(s): gestational HTN, cholestasis History of Any Multi-Drug Resistant Organisms: None Reported Past Surgical History: No Surgical Hx Reported Past Anesthesia/Blood Transfusion Reactions: No Reported Reaction Past Psychological History: Anxiety Smoking Status: Never smoker Past Alcohol Use History: None Reported Past Drug Use History: None Reported - Past Family History Father Family Medical History: Hypertension Mother Family Medical History: Cancer General Exam - General Exam Comments Initial Comments: Erythema pain and tenderness left lower extremity Limitations: no limitations General appearance: alert, in no apparent distress Head exam: Present: atraumatic, normocephalic, normal inspection Eye exam: Present: normal appearance, PERRL, EOMI. Absent: scleral icterus, conjunctival injection, periorbital swelling ENT exam: Present: normal exam, mucous membranes moist Neck exam: Present: normal inspection. Absent: tenderness, meningismus, lymphadenopathy Respiratory exam: Present: normal lung sounds bilaterally. Absent: respiratory distress, wheezes, rales, rhonchi, stridor Cardiovascular Exam: Present: regular rate, normal rhythm, normal heart sounds. Absent: systolic murmur, diastolic murmur, rubs, gallop, clicks GI/Abdominal exam: Present: soft, normal bowel sounds. Absent: distended, tenderness, guarding, rebound, rigid Extremities exam: Present: normal inspection, full ROM, normal capillary refill. Absent: tenderness, pedal edema, joint swelling, calf tenderness Back exam: Present: normal inspection Neurological exam: Present: alert, oriented X3, CN II-XII intact Psychiatric exam: Present: normal affect, normal mood Skin exam: Present: warm, dry, intact, normal color. Absent: rash Course Vital Signs 12/08/18 22:16 Temperature 98.7 F Pulse Rate 106 H Respiratory 16 Rate Blood Pressure 145/92 O2 Sat by Pulse 96 Oximetry - Reevaluation(s) Reevaluation #1: 12/09/18 00:33 Medical records reviewed Reevaluation #2: 12/09/18 00:34 Patient denies history of DVT, no chest pain or shortness of breath Medical Decision Making - Medical Decision Making 28 female the ER for evaluation presents today for evaluation regards to varicose vein evaluation, edema and erythema. Positive thrombophlebitis. Discharged home - Radiology Data Radiology results: report reviewed (US LLE postiive thrombophlebitis), image reviewed Disposition Clinical Impression: Superficial thrombophlebitis Disposition: HOME SELF-CARE Condition: Good Instructions (If sedation given, give patient instructions): Superficial Thrombophlebitis (ED) Prescriptions: Cephalexin [Keflex] 500 mg PO Q6HR #40 cap Naproxen [Naprosyn] 500 mg PO Q12HR PRN #30 tab PRN Reason: Pain Is patient prescribed a controlled substance at d/c from ED?: No Referrals: Chris Cade MD [Primary Care Provider] - 1-2 days
[2018-12-08] MEDS ORDERED: CEPHALEXIN 500 MG CAP PO STA (23:05)
[2018-12-08] MEDS ORDERED: IBUPROFEN 800 MG TAB PO STA (23:05)
--- NOTE | 2018-12-09 00:29 | US ---
INDICATION: Right leg pain TECHNIQUE: The right lower extremity deep venous system is examined utilizing real time linear array sonography with graded compression, doppler sonography and color-flow sonography. COMPARISON: None FINDINGS: Normal compressibility is demonstrated from the common femoral vein to the popliteal vein. There is normal response to augmentation. Normal spontaneous phasic flow is noted. There is superficial thrombophlebitis of a superficial vessel at the medial aspect of the knee. IMPRESSION: 1. Superficial thrombophlebitis of a superficial vessel at the medial aspect of the knee. 2. No evidence of acute DVT.
[2018-12-09 00:45] VITALS: BP 132/85; PULSE 86; RESP 14; TEMP 98.2
== END 2018-12-09 00:42 | disposition home or self-care (01) ==
LOC: EC 21:49
DX: I80.02 Phlebitis and thrombophlebitis of superficial vessels of left lower extremity (principal); F41.9 Anxiety disorder, unspecified; Z79.899 Other long term (current) drug therapy; Z91.012 Allergy to eggs; Z91.040 Latex allergy status; Z88.8 Allergy status to other drugs, medicaments and biological substances; Z86.79 Personal history of other diseases of the circulatory system
CPT/HCPCS: 99284

== ENCOUNTER → 2019-09-16 | Outpatient (CLI) | payer OTHER ==
[2019-09-16 16:53] LABS: African American GFR (CKD) 113.9 (60.0-200.0); Anion Gap 9.4 mmol/L (4.00-12.00); BUN/Creat Ratio 12.5 Ratio (12.00-20.00); Calcium 9.4 mg/dL (8.7-10.3); Carbon Dioxide 27.6 mmol/L (21.6-31.8); Magnesium 1.8 mg/dL (1.5-2.4); Non-African American GFR(CKD) 98.2 (60.0-200.0); Potassium 4.7 mmol/L (3.5-5.5)
[2019-09-16 17:01] LABS: T4, Free (Free Thyroxine) 1.1 ng/dL (0.80-1.80)
== END | disposition home or self-care (01) ==
LOC: LABWHC1 09:21
PROVIDERS: ATTEND Nurse Practitioner
DX: I49.3 Ventricular premature depolarization (principal); R00.2 Palpitations
CPT/HCPCS: 36415; 80048; 83735; 84439; 84443

== ENCOUNTER 2020-03-27 22:08 | Emergency (ER) | payer OTHER ==
--- NOTE | 2020-03-27 22:53 | ED ---
General Adult HPI - General Chief complaint: Chest Pain Stated complaint: Chest pain Time Seen by Provider: 03/27/20 22:24 Source: patient, RN notes reviewed, old records reviewed Mode of arrival: ambulatory Limitations: no limitations - History of Present Illness Initial comments: 29-year-old female presenting for evaluation of palpitation. She has had symptoms ongoing for several months. She previously had an appointment with a oncology research rn for the symptoms in the spring however due to scheduling issues she was unable to maintain this appointment. She states that over the past several weeks she's had an increased amount of palpitations, stating that she feels sicker heart skips a beat. She denies significant chest pain but states she has developed some chest tightness associated with this. No abdominal pain nausea vomiting. No history of arrhythmia, no history of DVT or PE. No history of CAD. - Related Data Home Medications Medication Instructions Recorded Confirmed Escitalopram Oxalate [Lexapro] 10 mg PO DAILY 12/08/18 12/08/18 Lisinopril [Prinivil] 10 mg PO DAILY 12/08/18 12/08/18 Previous Rx's Medication Instructions Recorded Cephalexin [Keflex] 500 mg PO Q6HR #40 cap 12/09/18 Naproxen [Naprosyn] 500 mg PO Q12HR PRN #30 tab 12/09/18 Allergies Allergy/AdvReac Type Severity Reaction Status Date / Time alprazolam [From Xanax] Allergy Severe Anaphylaxis Verified 03/27/20 22:22 Egg Derived Allergy Severe Rash/Hives Verified 03/27/20 22:22 Latex, Natural Rubber Allergy Mild Rash/Hives Verified 03/27/20 22:22 Review of Systems ROS Statement: Those systems with pertinent positive or pertinent negative responses have been documented in the HPI. ROS Other: All systems not noted in ROS Statement are negative. Past Medical History Past Medical History: No Reported History Additional Past Medical History / Comment(s): gestational HTN, History of Any Multi-Drug Resistant Organisms: None Reported Past Surgical History: No Surgical Hx Reported Past Anesthesia/Blood Transfusion Reactions: No Reported Reaction Past Psychological History: Anxiety Smoking Status: Never smoker Past Alcohol Use History: None Reported Past Drug Use History: None Reported - Past Family History Father Family Medical History: Hypertension Mother Family Medical History: Cancer General Exam Limitations: no limitations General appearance: alert, in no apparent distress Head exam: Present: atraumatic, normocephalic Eye exam: Present: normal appearance. Absent: PERRL, EOMI ENT exam: Present: normal exam Neck exam: Present: normal inspection. Absent: tenderness, meningismus Respiratory exam: Present: normal lung sounds bilaterally. Absent: respiratory distress, wheezes Cardiovascular Exam: Present: regular rate, normal rhythm GI/Abdominal exam: Present: soft. Absent: distended, tenderness Extremities exam: Present: normal inspection, normal capillary refill. Absent: pedal edema Neurological exam: Present: alert, oriented X3 Psychiatric exam: Present: normal affect, normal mood Skin exam: Present: warm, dry, intact. Absent: cyanosis, diaphoretic Course Vital Signs 03/27/20 22:18 Temperature 98.5 F Pulse Rate 96 Respiratory 16 Rate Blood Pressure 144/92 O2 Sat by Pulse 97 Oximetry EKG Findings - EKG Comments: EKG Findings:: EKG: Ventricular rate of 85, [place] interval 174, QRS duration 94, QTC 452, no ST segment elevation, T-wave inversion in V3 Medical Decision Making - Medical Decision Making 29-year-old female presenting with palpitations, chest tightness. Workup is initiated, patient has CBC showing mild leukocytosis, stable hemoglobin. She has a normal CBC, normal electrolytes, negative troponin, she has a positive d- dimer which is evaluated with CT angiography, which is negative for pulmonary embolism. Her chest x-ray is clear. She has had PVCs on the monitor. No other irregular heart rhythm. She will be given cardiology follow-up and will likely need short-term monitor. - Lab Data Result diagrams: 03/27/20 22:47 03/27/20 22:47 Lab Results 03/27/20 03/27/20 03/27/20 Range/Units 22:45 22:47 22:47 WBC 11.1 H (3.8-10.6) k/uL RBC 5.83 H (3.80-5.40) m/uL Hgb 13.5 (11.4-16.0) gm/dL Hct 42.2 (34.0-46.0) % MCV 72.5 L (80.0-100.0) fL MCH 23.2 L (25.0-35.0) pg MCHC 32.0 (31.0-37.0) g/dL RDW 13.9 (11.5-15.5) % Plt Count 363 (150-450) k/uL MPV 6.8 Neutrophils % 66 % Lymphocytes % 25 % Monocytes % 4 % Eosinophils % 3 % Basophils % 1 % Neutrophils # 7.3 (1.3-7.7) k/uL Lymphocytes # 2.8 (1.0-4.8) k/uL Monocytes # 0.5 (0-1.0) k/uL Eosinophils # 0.3 (0-0.7) k/uL Basophils # 0.1 (0-0.2) k/uL Microcytosis Slight PT 9.6 (9.0-12.0) sec INR 0.9 (<1.2) APTT 24.9 (22.0-30.0) sec D-Dimer 0.80 H (<0.60) mg/L FEU Sodium (137-145) mmol/L Potassium (3.5-5.1) mmol/L Chloride (98-107) mmol/L Carbon Dioxide (22-30) mmol/L Anion Gap mmol/L BUN (7-17) mg/dL Creatinine (0.52-1.04) mg/dL Est GFR (CKD-EPI)AfAm (>60 ml/min/1.73 sqM) Est GFR (CKD-EPI)NonAf (>60 ml/min/1.73 sqM) Glucose (74-99) mg/dL Calcium (8.4-10.2) mg/dL Magnesium (1.6-2.3) mg/dL Total Bilirubin (0.2-1.3) mg/dL AST (14-36) U/L ALT (4-34) U/L Alkaline Phosphatase (38-126) U/L Troponin I (0.000-0.034) ng/mL Total Protein (6.3-8.2) g/dL Albumin (3.5-5.0) g/dL Urine HCG, Qual Not Detected (Not Detectd) 03/27/20 03/27/20 Range/Units 22:47 22:47 WBC (3.8-10.6) k/uL RBC (3.80-5.40) m/uL Hgb (11.4-16.0) gm/dL Hct (34.0-46.0) % MCV (80.0-100.0) fL MCH (25.0-35.0) pg MCHC (31.0-37.0) g/dL RDW (11.5-15.5) % Plt Count (150-450) k/uL MPV Neutrophils % % Lymphocytes % % Monocytes % % Eosinophils % % Basophils % % Neutrophils # (1.3-7.7) k/uL Lymphocytes # (1.0-4.8) k/uL Monocytes # (0-1.0) k/uL Eosinophils # (0-0.7) k/uL Basophils # (0-0.2) k/uL Microcytosis PT (9.0-12.0) sec INR (<1.2) APTT (22.0-30.0) sec D-Dimer (<0.60) mg/L FEU Sodium 138 (137-145) mmol/L Potassium 3.9 (3.5-5.1) mmol/L Chloride 104 (98-107) mmol/L Carbon Dioxide 25 (22-30) mmol/L Anion Gap 9 mmol/L BUN 9 (7-17) mg/dL Creatinine 0.80 (0.52-1.04) mg/dL Est GFR (CKD-EPI)AfAm >90 (>60 ml/min/1.73 sqM) Est GFR (CKD-EPI)NonAf >90 (>60 ml/min/1.73 sqM) Glucose 107 H (74-99) mg/dL Calcium 9.1 (8.4-10.2) mg/dL Magnesium 1.7 (1.6-2.3) mg/dL Total Bilirubin 0.4 (0.2-1.3) mg/dL AST 26 (14-36) U/L ALT 18 (4-34) U/L Alkaline Phosphatase 105 (38-126) U/L Troponin I <0.012 (0.000-0.034) ng/mL Total Protein 8.4 H (6.3-8.2) g/dL Albumin 4.7 (3.5-5.0) g/dL Urine HCG, Qual (Not Detectd) Disposition Clinical Impression: Palpitations, PVC (premature ventricular contraction) Disposition: HOME SELF-CARE Condition: Good Instructions (If sedation given, give patient instructions): Heart Palpitations (ED), Premature Ventricular Contractions (ED) Is patient prescribed a controlled substance at d/c from ED?: No Referrals: None,Stated [REFERRING] - 1-2 days Jeffrey Mendoza MD [STAFF PHYSICIAN] - 1-2 days Esau Ordaz [STAFF PHYSICIAN] - 1-2 days Time of Disposition: 00:26
[2020-03-27 22:57] LABS: Basophils # (A) 0.1 k/uL (0-0.2); Basophils % (A) 1 %; Eosinophils # (A) 0.3 k/uL (0-0.7); Eosinophils % (A) 3 %; HCT 42.2 % (34.0-46.0); HGB 13.5 gm/dL (11.4-16.0); Lymphocytes # (A) 2.8 k/uL (1.0-4.8); Lymphocytes % (A) 25 %; MCH 23.2 pg (25.0-35.0); MCV 72.5 fL (80.0-100.0); Mean Platelet Volume 6.8; Microcytosis Slight; Monocytes # (A) 0.5 k/uL (0-1.0); Monocytes % (A) 4 %; Neutrophils # (A) 7.3 k/uL (1.3-7.7); Neutrophils % (A) 66 %; Platelet Count 363 k/uL (150-450); RBC 5.83 m/uL (3.80-5.40); RDW 13.9 % (11.5-15.5); WBC 11.1 k/uL (3.8-10.6)
[2020-03-27 23:12] LABS: INR 0.9 (<1.2); Partial Thromboplastin Time 24.9 sec (22.0-30.0); Prothrombin Time 9.6 sec (9.0-12.0)
[2020-03-27 23:16] LABS: ALT 18 U/L (4-34); AST 26 U/L (14-36); African American GFR (CKD) >90 (>60 ml/min/1.73 sqM); Albumin 4.7 g/dL (3.5-5.0); Alkaline Phosphatase 105 U/L (38-126); Anion Gap 9 mmol/L; Blood Urea Nitrogen 9 mg/dL (7-17); Calcium 9.1 mg/dL (8.4-10.2); Carbon Dioxide 25 mmol/L (22-30); Chloride 104 mmol/L (98-107); Glucose 107 mg/dL (74-99); Magnesium 1.7 mg/dL (1.6-2.3); Non-African American GFR(CKD) >90 (>60 ml/min/1.73 sqM); Potassium 3.9 mmol/L (3.5-5.1); Sodium 138 mmol/L (137-145); Total Bilirubin 0.4 mg/dL (0.2-1.3); Total Protein 8.4 g/dL (6.3-8.2)
[2020-03-27 23:19] LABS: D-Dimer 0.8 mg/L FEU (<0.60)
--- NOTE | 2020-03-27 23:33 | XR ---
EXAMINATION TYPE: XR chest 2V DATE OF EXAM: 03/27/2020 COMPARISON: 11/24/2015 HISTORY: Chest pain. Dysrhythmia TECHNIQUE: FINDINGS: Heart and mediastinum are normal. Lungs are clear. Diaphragm is normal. Bony thorax is inta ct IMPRESSION: Normal chest. No change.
--- NOTE | 2020-03-28 00:13 | CT ---
EXAMINATION TYPE: CT angio chest DATE OF EXAM: 03/28/2020 COMPARISON: 06/02/2017 HISTORY: Chest pain CT DLP: mGycm Automated exposure control for dose reduction was used. CONTRAST: Performed , patient injected with mL of . The contrast was Isovue 100 mL. There are 3-D post processed images. The lungs are clear of consolidation. There is no evidence of a pulmonary mass. There is no pleural e ffusion. There is no pericardial effusion. Heart size is fairly normal. There are no hilar masses. There is no mediastinal adenopathy. Thoracic aorta is intact. There is no aneurysm or dissection. There is normal contrast opacification of the pulmonary arteries. There are no filling defects. Thoracic spine is intact. There is no compression fracture. Sternum is intact. The upper abdominal so ft tissues are intact. IMPRESSION: No evidence of pulmonary embolism. No evidence of bronchopneumonia. There is clearing of the minimal subpleural interstitial density at the lung bases compared to old exam.
[2020-03-28 00:56] VITALS: BP 143/82; PULSE 80; RESP 18; TEMP 98.2
== END 2020-03-28 00:56 | disposition home or self-care (01) ==
LOC: EC 22:08
DX: I49.3 Ventricular premature depolarization (principal); D72.829 Elevated white blood cell count, unspecified; F41.9 Anxiety disorder, unspecified; Z79.899 Other long term (current) drug therapy; Z88.8 Allergy status to other drugs, medicaments and biological substances; Z91.012 Allergy to eggs; Z91.040 Latex allergy status
CPT/HCPCS: 36415; 93005; 85379; 80053; 83735; 84484; 85025; 85610; 85730; 81025; 71046; 71275; 99285; Q9967

== ENCOUNTER 2021-08-23 13:14 | Emergency (ER) | payer OTHER ==
[2021-08-23 13:22] VITALS: TEMP 98
--- NOTE | 2021-08-23 14:30 | ED ---
Female Urogenital HPI - General Chief complaint: Vaginal Bleeding Stated complaint: Vaginal Bleeding, Anemia, Nausea Time Seen by Provider: 08/23/21 13:45 Source: patient, RN notes reviewed, old records reviewed Mode of arrival: ambulatory Limitations: no limitations - History of Present Illness Initial comments: Patient is a 31-year-old female, history of hypertension, thyroid disease, anemia, presenting to the emergency Department with complaints of heavy vaginal bleeding over the past month. She states for many years she was having irregular cycles, her period usually lasted a couple days and would often skip months. She states this past month has been very heavy, she seen a new family medicine and PE who put her on a control patch, the first week did improve her symptoms, then the second week the patch started coming off and she felt like her bleeding was increasing so she just took it off and bleeding has been very heavy the last 2 days. She states she's been bleeding through a heavy tampon and pad within a half hour. She states this woke up this morning feeling some tingling in her hands and feet. This has improved at this time. She has been diagnosed with anemia in the past and is getting concerned this is getting worse. She used to see Dr. 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 Appointment with somebody else in their group or were not is available at this time. She denies any chest pain or shortness of breath, no fevers or chills. She does not believe she is . She has no further complaints. - Related Data Home Medications Medication Instructions Recorded Confirmed Escitalopram Oxalate [Lexapro] 10 mg PO DAILY 12/08/18 12/08/18 Lisinopril [Prinivil] 10 mg PO DAILY 12/08/18 12/08/18 Previous Rx's Medication Instructions Recorded Cephalexin [Keflex] 500 mg PO Q6HR #40 cap 12/09/18 Naproxen [Naprosyn] 500 mg PO Q12HR PRN #30 tab 12/09/18 Allergies Allergy/AdvReac Type Severity Reaction Status Date / Time alprazolam [From Xanax] Allergy Severe Anaphylaxis Verified 08/23/21 13:17 Egg Derived Allergy Severe Rash/Hives Verified 08/23/21 13:17 Latex, Natural Rubber Allergy Mild Rash/Hives Verified 08/23/21 13:17 Review of Systems ROS Statement: Those systems with pertinent positive or pertinent negative responses have been documented in the HPI. ROS Other: All systems not noted in ROS Statement are negative. Past Medical History Past Medical History: No Reported History Additional Past Medical History / Comment(s): gestational HTN, History of Any Multi-Drug Resistant Organisms: None Reported Past Surgical History: No Surgical Hx Reported Past Anesthesia/Blood Transfusion Reactions: No Reported Reaction Past Psychological History: Anxiety Smoking Status: Never smoker Past Alcohol Use History: None Reported Past Drug Use History: None Reported - Past Family History Father Family Medical History: Hypertension Mother Family Medical History: Cancer General Exam - General Exam Comments Initial Comments: GENERAL: Patient is well-developed and well-nourished. Patient is nontoxic and in no acute distress. HEAD: Atraumatic, normocephalic. EYES: Pupils equal round and reactive to light, extraocular movements intact, sclera anicteric, conjunctiva are normal. Eyelids were unremarkable. ENT: TMs normal, nares patent, oropharynx clear without exudates. Moist mucous membranes. NECK: Normal range of motion, supple without lymphadenopathy or JVD. LUNGS: Unlabored respirations. Breath sounds clear to auscultation bilaterally and equal. No wheezes rales or rhonchi. HEART: Regular rate and rhythm without murmurs, rubs or gallops. ABDOMEN: Soft, very mild suprapubic discomfort on palpation, no other areas of pain, normoactive bowel sounds. No guarding, no rebound. No masses appreciated. : Deferred MUSCULOSKELETAL: Normal extremities with adequate strength and normal range of motion, no pitting or edema. No clubbing or cyanosis. NEUROLOGICAL: Patient is alert and oriented x 3. Motor and sensory are also intact. Cranial nerves II through XII grossly intact. Symmetrical smile. Normal speech, normal gait. PSYCH: Normal mood, normal affect. SKIN: Warm, Dry, normal turgor, no rashes or lesions noted. Limitations: no limitations Course Vital Signs 08/23/21 13:19 Temperature 98 F Pulse Rate 110 H Respiratory 16 Rate Blood Pressure 165/100 O2 Sat by Pulse 95 Oximetry Medical Decision Making - Medical Decision Making Patient is a 31-year-old female here for heavy bleeding over the past month. 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 Vitals are stable here. Hemoglobin is stable here at 12, no other acute abnormality seen. I recommended following back up with her PCPs office as well as FEATHER SHAPER for further management of heavy bleeding. Patient is agreeable to this. Patient is stable for discharge. Return parameters were discussed. - Lab Data Result diagrams: 08/23/21 14:40 08/23/21 14:40 Lab Results 08/23/21 08/23/21 08/23/21 Range/Units 14:40 14:40 14:40 WBC 9.1 (3.8-10.6) k/uL RBC 5.36 (3.80-5.40) m/uL Hgb 12.0 (11.4-16.0) gm/dL Hct 39.6 (34.0-46.0) % MCV 73.9 L (80.0-100.0) fL MCH 22.4 L (25.0-35.0) pg MCHC 30.3 L (31.0-37.0) g/dL RDW 16.9 H (11.5-15.5) % Plt Count 400 (150-450) k/uL MPV 7.5 Neutrophils % 68 % Lymphocytes % 24 % Monocytes % 5 % Eosinophils % 2 % Basophils % 1 % Neutrophils # 6.2 (1.3-7.7) k/uL Lymphocytes # 2.2 (1.0-4.8) k/uL Monocytes # 0.4 (0-1.0) k/uL Eosinophils # 0.2 (0-0.7) k/uL Basophils # 0.1 (0-0.2) k/uL Hypochromasia Moderate Anisocytosis Slight Microcytosis Moderate Sodium 137 (137-145) mmol/L Potassium 4.3 (3.5-5.1) mmol/L Chloride 105 (98-107) mmol/L Carbon Dioxide 19 L (22-30) mmol/L Anion Gap 13 mmol/L BUN 6 L (7-17) mg/dL Creatinine 0.71 (0.52-1.04) mg/dL Est GFR (CKD-EPI)AfAm >90 (>60 ml/min/1.73 sqM) Est GFR (CKD-EPI)NonAf >90 (>60 ml/min/1.73 sqM) Glucose 101 H (74-99) mg/dL Calcium 8.3 L (8.4-10.2) mg/dL Urine Color Dark Red Urine Appearance Bloody H (Clear) Urine RBC >182 H (0-5) /hpf Urine WBC 54 H (0-5) /hpf Urine HCG, Qual (Not Detectd) 08/23/21 Range/Units 14:40 WBC (3.8-10.6) k/uL RBC (3.80-5.40) m/uL Hgb (11.4-16.0) gm/dL Hct (34.0-46.0) % MCV (80.0-100.0) fL MCH (25.0-35.0) pg MCHC (31.0-37.0) g/dL RDW (11.5-15.5) % Plt Count (150-450) k/uL MPV Neutrophils % % Lymphocytes % % Monocytes % % Eosinophils % % Basophils % % Neutrophils # (1.3-7.7) k/uL Lymphocytes # (1.0-4.8) k/uL Monocytes # (0-1.0) k/uL Eosinophils # (0-0.7) k/uL Basophils # (0-0.2) k/uL Hypochromasia Anisocytosis Microcytosis Sodium (137-145) mmol/L Potassium (3.5-5.1) mmol/L Chloride (98-107) mmol/L Carbon Dioxide (22-30) mmol/L Anion Gap mmol/L BUN (7-17) mg/dL Creatinine (0.52-1.04) mg/dL Est GFR (CKD-EPI)AfAm (>60 ml/min/1.73 sqM) Est GFR (CKD-EPI)NonAf (>60 ml/min/1.73 sqM) Glucose (74-99) mg/dL Calcium (8.4-10.2) mg/dL Urine Color Urine Appearance (Clear) Urine RBC (0-5) /hpf Urine WBC (0-5) /hpf Urine HCG, Qual Not Detected (Not Detectd) Disposition Clinical Impression: Menorrhagia Disposition: HOME SELF-CARE Condition: Stable Instructions (If sedation given, give patient instructions): Dysmenorrhea (ED) Additional Instructions: Please return to the Emergency Department if symptoms worsen or any other concerns. Follow-up with her PCPs office and/or gynecology as discussed. Is patient prescribed a controlled substance at d/c from ED?: No Referrals: Trudi Campo MD [Primary Care Provider] - 1-2 days Orquidea Crawford MD [STAFF PHYSICIAN] - 1-2 days Time of Disposition: 15:52
[2021-08-23 14:53] LABS: Anisocytosis Slight; Basophils # (A) 0.1 k/uL (0-0.2); Basophils % (A) 1 %; Eosinophils # (A) 0.2 k/uL (0-0.7); Eosinophils % (A) 2 %; HCT 39.6 % (34.0-46.0); Hypochromasia Moderate; Lymphocytes # (A) 2.2 k/uL (1.0-4.8); Lymphocytes % (A) 24 %; MCH 22.4 pg (25.0-35.0); MCHC 30.3 g/dL (31.0-37.0); MCV 73.9 fL (80.0-100.0); Mean Platelet Volume 7.5; Microcytosis Moderate; Monocytes # (A) 0.4 k/uL (0-1.0); Monocytes % (A) 5 %; Neutrophils # (A) 6.2 k/uL (1.3-7.7); Neutrophils % (A) 68 %; Platelet Count 400 k/uL (150-450); RBC 5.36 m/uL (3.80-5.40); RDW 16.9 % (11.5-15.5); WBC 9.1 k/uL (3.8-10.6)
[2021-08-23 15:04] LABS: African American GFR (CKD) >90 (>60 ml/min/1.73 sqM); Anion Gap 13 mmol/L; Blood Urea Nitrogen 6 mg/dL (7-17); Calcium 8.3 mg/dL (8.4-10.2); Carbon Dioxide 19 mmol/L (22-30); Chloride 105 mmol/L (98-107); Glucose 101 mg/dL (74-99); Non-African American GFR(CKD) >90 (>60 ml/min/1.73 sqM); Potassium 4.3 mmol/L (3.5-5.1); Sodium 137 mmol/L (137-145)
[2021-08-23 15:11] LABS: RBC,Urine >182 /hpf (0-5); WBC,Urine 54 /hpf (0-5)
[2021-08-23 15:16] LABS: Appearance,Urine Bloody (Clear)
[2021-08-23 15:17] LABS: Color,Urine Dark Red
[2021-08-23 16:02] VITALS: BP 156/87; PULSE 90; RESP 20
== END 2021-08-23 16:01 | disposition home or self-care (01) ==
LOC: EC 13:14
DX: N92.0 Excessive and frequent menstruation with regular cycle (principal); Z88.2 Allergy status to sulfonamides; Z91.012 Allergy to eggs; Z91.040 Latex allergy status
CPT/HCPCS: 36415; 80048; 81001; 81025; 85025; 87086; 99284